=== PATIENT | male | born 1940 | race Caucasian/White ===

== ENCOUNTER 2017-07-22 18:27 | Emergency (ER) | payer MEDICARE ==
[2017-07-22 18:33] VITALS: BP 160/83
[2017-07-22] MEDS ORDERED: Sodium Chloride 0.9% 10 ML Syringe FLUSH PRN (18:42)
--- NOTE | 2017-07-22 18:52 | EDM.PDOC ---
ED HPI GENERAL MEDICAL PROBLEM - General Chief Complaint: Neuro Symptoms/Deficits Stated Complaint: med via [place] Time Seen by Provider: 07/22/17 18:35 Source of Information: Reports: Patient, Old Records, RN History Limitations: Reports: No Limitations - History of Present Illness INITIAL COMMENTS - FREE TEXT/NARRATIVE: 77 yo male presents after a KO and slurred, confused speech that lasted 20-30 minutes starting at about 2 pm today. He has a coronary stent from about age 63 in his R coronary artery. No hx of CVA's or migraine. He does not normally have elevated BP. He does not smoke. His BS was about 120 with this episode. He is back to normal now except for a mild KO behind his L eye. The vision at the time of his attack was blurry in the L eye only. Onset: Today Onset Date: 07/22/17 Onset Time: 14:00 Duration: Minutes: (20-30), Improving Location: Reports: Head Quality: Reports: Ache Severity: Moderate Improves with: Reports: Other (? time) Worsens with: Reports: Other (unknown) Context: Reports: Other (Hx of CAD, AODN) Associated Symptoms: Reports: Confusion, Headaches, Other (slurred speech, blurry L eye). 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 (see below) (none) Headache Pain Score (Numeric/FACES): 2 - Related Data Allergies Allergy/AdvReac Type Severity Reaction Status Date / Time No Known Allergies Allergy Verified 04/01/13 08:56 Home Meds: Home Meds Aspirin [Adult Low Dose Aspirin EC] 81 mg PO DAILY 04/01/13 [History] Insulin Glarg,Human.Rec.Analog [Lantus] 50 units SQ Q12HR 04/01/13 [History] Ubidecarenone [Coenzyme Q10] 200 mg PO DAILY 04/01/13 [History] Alpha Lipoic Acid 200 mg PO BID 07/12/15 [History] Arginine 1,500 mg PO BID 07/12/15 [History] Canagliflozin [Invokana] 300 mg PO DAILY 07/12/15 [History] Cholecalciferol (Vitamin D3) [Vitamin D] 1,000 unit PO BID 07/12/15 [History] Chromium Picolinate 200 mcg PO DAILY 07/12/15 [History] Folic Acid 400 mcg PO DAILY 07/12/15 [History] Furosemide 20 mg PO DAILY 07/12/15 [History] Insulin Lispro [Humalog] 40 unit SQ ASDIRECTED 07/12/15 [History] Lecithin 1,200 mg PO BID 07/12/15 [History] Liraglutide [Victoza] 1.8 mg SUBCUT DAILY 07/12/15 [History] Magnesium 400 mg PO DAILY 07/12/15 [History] Metoprolol Succinate [Toprol XL] 12.5 mg PO DAILY 07/12/15 [History] Niacin 1,000 mg PO DAILY 07/12/15 [History] [place]-3 Fatty Acids [[place]-3] 1,000 mg PO BID 07/12/15 [History] Past Medical History Cardiovascular History: Reports: CAD, SD, Stents, Other (See Below) Other Cardiovascular History: history of SD and stent x1 about 13 years ago according to patient Respiratory History: Reports: Pneumonia, Recurrent, Sleep Apnea, Other (See Below) 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 Musculoskeletal History: Reports: Arthritis, Other (See Below) Other Musculoskeletal History: arthritis left ankle and knees Neurological History: Reports: Concussion Endocrine/Metabolic History: Reports: Diabetes, Type II - Infectious Disease History Infectious Disease History: Reports: Chicken Pox - Past Surgical History Cardiovascular Surgical History: Reports: Carotid Stents Social & Family History - Family History Family Medical History: Noncontributory - Tobacco Use Smoking Status *Q: Former Smoker Used Tobacco, but Quit: Yes Month Tobacco Last Used: 2001 - Recreational Drug Use Recreational Drug Use: No ED ROS GENERAL - Review of Systems Review Of Systems: See Below Constitutional: Reports: No Symptoms HEENT: Reports: Eye Pain (behind L eye), Vision Change (L eye only, now better) Respiratory: Reports: No Symptoms Cardiovascular: Reports: No Symptoms Endocrine: Reports: No Symptoms GI/Abdominal: Reports: No Symptoms : Reports: No Symptoms Musculoskeletal: Reports: No Symptoms Skin: Reports: No Symptoms Neurological: Reports: Headache, Trouble Speaking, Other (blurred vision L eye) Psychiatric: Reports: No Symptoms ED EXAM, NEURO - Physical Exam Exam: See Below Exam Limited By: No Limitations General Appearance: Alert, WD/WN, No Apparent Distress Eye Exam: Bilateral Eye: EOMI, Normal Inspection, PERRL Ears: Normal External Exam, Normal Canal, Hearing Grossly Normal Nose: Normal Inspection, Normal Mucosa, No Blood Throat/Mouth: Normal Inspection, Normal Lips, Normal Oropharynx, Normal Voice, No Airway Compromise Head Exam: Atraumatic, Normocephalic Neck: Normal Inspection, Supple, Non-Tender. No: Carotid Bruit Respiratory/Chest: No Respiratory Distress, Lungs Clear, Normal Breath Sounds, No Accessory Muscle Use, Chest Non-Tender Cardiovascular: Regular Rate, Rhythm, No Edema GI/Abdominal: Normal Bowel Sounds, Soft, Non-Tender, No Distention Neurological: Alert, Normal Mood/Affect, CN II-XII Intact, Normal Reflexes, No Motor/Sensory Deficits, Oriented x 3 Extremities: Normal Inspection, Normal Range of Motion, Non-Tender, No Pedal Edema Psychiatric: Normal Affect, Normal Mood Skin Exam: Warm, Dry, Intact, Normal Color, No Rash Course - Vital Signs Text/Narrative:: Tells me his BS levels area quite labile. He was not surprised that his BS was 289 here. At home if he took any short acting insulin for this it would be a very low dose or he might bottom out. His BS before he ate dinner about 1600h today was 120. Is now fully resolved of what brought him to the ER @ 1950h. ASA 243 mg po Spoke with Bebeto nunes, Dr. Rivera@ 2030h. Accepts in transfer to [facility]. Last Recorded V/S: Last Vital Signs Temp 36.4 C 07/22/17 18:43 Pulse 77 18 18:43 Resp 16 07/22/17 18:43 BP 160/83 H 07/22/17 18:43 Pulse Ox 96 07/22/17 18:43 - Orders/Labs/Meds Orders: Active Orders 24 hr Category Date Time Status Cardiac Monitoring [RC] .As Directed Care 07/22/17 18:41 Active Oxygen Therapy Adult [Oxygen Therapy, ED] [RC] Care 07/22/17 18:41 Active ASDIRECTED Head wo Cont [CT] Stat Exams 18 18:40 Taken Sodium Chloride 0.9% [Saline Flush] Med 07/22/17 18:42 Active 10 ml FLUSH ASDIRECTED PRN Saline Lock Insert [OM.PC] Routine Oth 07/22/17 18:42 Ordered Medication Orders Sodium Chloride (Saline Flush) 10 ml FLUSH ASDIRECTED PRN PRN Reason: Keep Vein Open Labs: Laboratory Tests 07/22/17 07/22/17 07/22/17 Range/Units 18:51 18:51 19:31 WBC 6.3 (4.5-11.0) K/uL RBC 4.37 (4.30-5.90) M/uL Hgb 12.9 (12.0-15.0) g/dL Hct 37.5 L (40.0-54.0) % MCV 86 (80-98) fL MCH 30 (27-31) pg MCHC 34 (32-36) % Plt Count 183 (150-400) K/uL Sodium 133 L (140-148) mmol/L Potassium 4.3 (3.6-5.2) mmol/L Chloride 98 L (100-108) mmol/L Carbon Dioxide 27 (21-32) mmol/L Anion Gap 12.3 (5.0-14.0) mmol/L BUN 22 H (7-18) mg/dL Creatinine 1.7 H (0.8-1.3) mg/dL Est Cr Clr Drug Dosing 39.37 mL/min Estimated GFR (MDRD) 39 L (>60) Glucose 289 H (74-106) mg/dL Calcium 8.6 (8.5-10.1) mg/dL Troponin I < 0.017 (0.000-0.056) ng/mL Urine Color Yellow Urine Appearance Clear Urine pH 7.0 (4.5-8.0) Ur Specific [place] 1.015 (1.008-1.030) Urine Protein 30 H (NEGATIVE) mg/dL Urine Glucose (UA) 1000 H (NEGATIVE) mg/dL Urine Ketones Negative (NEGATIVE) mg/dL Urine Occult Blood Negative (NEGATIVE) Urine Nitrite Negative (NEGAITVE) Urine Bilirubin Negative (NEGATIVE) Urine Urobilinogen Normal (NORMAL) mg/dL Ur Leukocyte Esterase Negative (NEGATIVE) Urine RBC Not seen (0-5) Urine WBC 0-5 (0-5) Ur Epithelial Cells Not seen Amorphous Sediment Not seen Urine Bacteria Not seen Urine Mucus Rare Meds: Medications Generic Name Dose Route Start Last Admin Trade Name Freq PRN Reason Stop Dose Admin Sodium Chloride 10 ml 07/22/17 18:42 Saline Flush FLUSH ASDIRECTED PRN Keep Vein Open Discontinued Medications Generic Name Dose Route Start Last Admin Trade Name Andrea PRN Reason Stop Dose Admin Aspirin 243 mg 07/22/17 20:25 Aspirin PO 07/22/17 20:26 ONETIME ONE - Radiology Interpretation Free Text/Narrative:: Atrophy, microvasular dz-nothing acute. CT Results Date: 07/22/17 CT Results Time: 20:15 Departure - Departure Time of Disposition: 20:45 Disposition: DC/Tfer to Acute Hospital 02 Condition: Fair Clinical Impression: Transient ischemic attack, anterior circulation, remote, resolved - Discharge Information Referrals: PCP,None [Primary Care Provider] - Forms: ED Department Discharge - My Orders Last 24 Hours: My Active Orders 07/22/17 18:40 Head wo Cont [CT] Stat 07/22/17 18:41 Cardiac Monitoring [RC] .As Directed Oxygen Therapy Adult [Oxygen Therapy, ED] [RC] ASDIRECTED 07/22/17 18:42 Sodium Chloride 0.9% [Saline Flush] 10 ml FLUSH ASDIRECTED PRN Saline Lock Insert [OM.PC] Routine - Assessment/Plan Last 24 Hours: My Active Orders 07/22/17 18:40 Head wo Cont [CT] Stat 07/22/17 18:41 Cardiac Monitoring [RC] .As Directed Oxygen Therapy Adult [Oxygen Therapy, ED] [RC] ASDIRECTED 07/22/17 18:42 Sodium Chloride 0.9% [Saline Flush] 10 ml FLUSH ASDIRECTED PRN Saline Lock Insert [OM.PC] Routine
[2017-07-22] MEDS ORDERED: Aspirin 81 MG Tab.Chew PO ONE (20:25)
== END 2017-07-22 22:02 ==
LOC: JP.ED 18:27
DX: G45.9 Transient cerebral ischemic attack, unspecified (principal); I25.2 Old myocardial infarction; E11.9 Type 2 diabetes mellitus without complications; Z79.82 Long term (current) use of aspirin; Z79.899 Other long term (current) drug therapy
CPT/HCPCS: 36415; 70450; 80048; 81001; 84484; 85027; 99285; A9270

== ENCOUNTER 2018-08-28 06:28 | Day surgery (SDC) | payer MEDICARE ==
[2018-08-28] MEDS ORDERED: Sodium Chloride 0.9% 1,000 ML IV SCH (07:00)
[2018-08-28] MEDS ORDERED: Propofol 200 MG/20 ML SDV ONE (07:08)
[2018-08-28] MEDS ORDERED: fentaNYL 100 MCG/2 ML SDV ONE (07:09)
[2018-08-28] MEDS ORDERED: Ampicillin 1 GM in Sodium Chloride 0.9% 50 ML IV ONE (07:30)
[2018-08-28 08:40] VITALS: BP 123/73
--- NOTE | 2018-08-28 08:53 | PROC ---
DATE OF PROCEDURE: 08/28/2018 SURGEON: Doug Low MD INDICATIONS: Timoteo is a 78-year-old male, comes in for a screening colonoscopy. The risks and benefits were explained, and the patient was taken to the OR. PROCEDURE IN DETAIL: Anesthesia was given by nurse audio visual director. The Olympus 180-AL scope was used. With a gloved finger, the rectum was examined and the prostate was negative. The tube was placed into the rectum and advanced under direct vision. We did get to the cecum, where we found a polyp. This was biopsied, and the biopsies were sent to the pathologist. Picture was taken of the cecum area. Upon retraction of the tube, noted no lesions, ulceration, no other abnormality. The tube was removed. The patient tolerated the procedure well. PREOPERATIVE DIAGNOSIS: Screening colonoscopy. POSTOPERATIVE DIAGNOSIS: 4 mm polyp at cecum, biopsy was done and report is pending. The patient tolerated the procedure well. Doug Low MD /[id number]
== END 2018-08-28 09:32 | disposition home or self-care (01) ==
LOC: JP.SDS 06:28
PROVIDERS: ATTEND Internal Medicine
DX: Z12.11 Encounter for screening for malignant neoplasm of colon (principal); D12.0 Benign neoplasm of cecum; I25.10 Atherosclerotic heart disease of native coronary artery without angina pectoris; I25.2 Old myocardial infarction; I12.9 Hypertensive chronic kidney disease with stage 1 through stage 4 chronic kidney disease, or unspecified chronic kidney disease; E11.22 Type 2 diabetes mellitus with diabetic chronic kidney disease; N18.9 Chronic kidney disease, unspecified; E78.5 Hyperlipidemia, unspecified; K21.9 Gastro-esophageal reflux disease without esophagitis; G47.33 Obstructive sleep apnea (adult) (pediatric); Z86.010 Personal history of colon polyps; Z86.73 Personal history of transient ischemic attack (TIA), and cerebral infarction without residual deficits
CPT/HCPCS: 45380; J0290; J2704; J3010; J7030; J7050; 88305

== ENCOUNTER 2018-12-12 13:43 | Emergency (ER) | payer MEDICARE ==
--- NOTE | 2018-12-12 14:36 | EDM.PDOC ---
ED HPI GENERAL MEDICAL PROBLEM - General Chief Complaint: Cardiovascular Problem Stated Complaint: CHEST PAINS, SOB Time Seen by Provider: 12/12/18 14:19 Source of Information: Reports: Patient History Limitations: Reports: No Limitations - History of Present Illness INITIAL COMMENTS - FREE TEXT/NARRATIVE: 78 yo male presents with CP and SOB with activity. In October he did have blood transfusion following like symptoms. He does have established care with tableau architect and bond analyst. He has bone marrow biopsy scheduled for next week. He also has extensive cardiac hx with [address]. He describes incident this AM when he was walking out to mailbox became weak and had CP. The CP resolved with rest. Left Chest Pain Score (Numeric/FACES): 5 - Related Data Allergies Allergy/AdvReac Type Severity Reaction Status Date / Time metformin Allergy Rash Verified 12/12/18 14:01 Home Meds: Home Meds Aspirin [Adult Low Dose Aspirin EC] 325 mg PO DAILY 04/01/13 [History] Insulin Glarg,Human.Rec.Analog [Lantus] 50 units SQ Q12HR 04/01/13 [History] Furosemide 20 mg PO DAILY 07/12/15 [History] Insulin Lispro [Humalog] 40 unit SQ ASDIRECTED 07/12/15 [History] Liraglutide [Victoza] 1.8 mg SUBCUT DAILY 07/12/15 [History] Metoprolol Succinate [Toprol XL] 12.5 mg PO DAILY 07/12/15 [History] Clopidogrel Bisulfate [Clopidogrel] 75 mg PO DAILY 08/28/18 [History] Lisinopril 5 mg PO DAILY 12/12/18 [History] Past Medical History HEENT History: Reports: Cataract, Hard of Hearing, Impaired Vision Cardiovascular History: Reports: CAD, Heart Murmur, High Cholesterol, Hypertension, [place], Stents, Other (See Below) Other Cardiovascular History: history of IL and stent x1 about 13 years ago according to patient, 3 stents 2 weekas ago Respiratory History: Reports: Pneumonia, Recurrent, Sleep Apnea, Other (See Below) 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 Musculoskeletal History: Reports: Arthritis, Other (See Below) Other Musculoskeletal History: arthritis left ankle and knees Neurological History: Reports: Concussion, Neuropathy, Peripheral Endocrine/Metabolic History: Reports: Diabetes, Type II Hematologic History: Reports: Anemia, Blood Transfusion(s) - Infectious Disease History Infectious Disease History: Reports: Chicken Pox - Past Surgical History HEENT Surgical History: Reports: Cataract Surgery, Tonsillectomy Cardiovascular Surgical History: Reports: Carotid Stents Social & Family History - Family History Family Medical History: Noncontributory - Tobacco Use Smoking Status *Q: Never Smoker - Caffeine Use Caffeine Use: Reports: Coffee Other Caffeine Use: 1-2 cups in am - Recreational Drug Use Recreational Drug Use: No ED ROS GENERAL - Review of Systems Review Of Systems: See Below Constitutional: Denies: Fever, Chills Respiratory: Reports: Shortness of Breath. Denies: Wheezing Cardiovascular: Reports: Chest Pain GI/Abdominal: Denies: Abdominal Pain, Constipation, Diarrhea ED EXAM, GENERAL - Physical Exam Exam: See Below Exam Limited By: No Limitations General Appearance: Alert, WD/WN, No Apparent Distress Nose: Normal Inspection, Normal Mucosa, No Blood Head: Atraumatic, Normocephalic Respiratory/Chest: No Respiratory Distress, Lungs Clear, Normal Breath Sounds, No Accessory Muscle Use, Chest Non-Tender. No: Crackles, Rhonchi, Wheezing Cardiovascular: Regular Rate, Rhythm, No Rub, Systolic Murmur Extremities: Normal Inspection, Normal Range of Motion Neurological: Alert, Oriented Psychiatric: Normal Affect, Normal Mood Skin Exam: Warm, Dry, Intact Course - Vital Signs Last Recorded V/S: Last Vital Signs Temp 36.1 C 12/12/18 19:00 Pulse 70 12/12/18 16:32 Resp 17 12/12/18 19:00 BP 128/66 12/12/18 19:00 Pulse Ox 98 12/12/18 19:00 - Orders/Labs/Meds Orders: Active Orders 24 hr Category Date Time Status EKG Documentation Completion [RC] ASDIRECTED Care 12/12/18 14:37 Active Transfuse Red Blood Cells [COMM] Stat Oth 12/12/18 15:57 Ordered EKG 12 Lead [EK] Routine Ther 12/12/18 14:37 Ordered Labs: Laboratory Tests 12/12/18 12/12/18 12/12/18 Range/Units 14:40 14:40 14:40 WBC 1.5 L (4.5-11.0) K/uL RBC 2.72 L (4.30-5.90) M/uL Hgb 8.1 L D (12.0-15.0) g/dL Hct 24.8 L (40.0-54.0) % MCV 91 (80-98) fL MCH 30 (27-31) pg MCHC 33 (32-36) % Plt Count 53 L (150-400) K/uL Neut % (Auto) 39 (36-66) % Lymph % (Auto) 55 H (24-44) % [place] % (Auto) 4 (2-6) % Eos % (Auto) 1 L (2-4) % Baso % (Auto) 0 (0-1) % Sodium 134 L (140-148) mmol/L Potassium 4.5 (3.6-5.2) mmol/L Chloride 100 (100-108) mmol/L Carbon Dioxide 24 (21-32) mmol/L Anion Gap 14.5 H (5.0-14.0) mmol/L BUN 24 H (7-18) mg/dL Creatinine 1.4 H (0.8-1.3) mg/dL Est Cr Clr Drug Dosing 45.63 mL/min Estimated GFR (MDRD) 49 L (>60) Glucose 324 H (74-106) mg/dL Calcium 8.7 (8.5-10.1) mg/dL Troponin I < 0.017 (0.000-0.056) ng/mL Blood Type Gel Antibody Screen Crossmatch 12/12/18 Range/Units 14:40 WBC (4.5-11.0) K/uL RBC (4.30-5.90) M/uL Hgb (12.0-15.0) g/dL Hct (40.0-54.0) % MCV (80-98) fL MCH (27-31) pg MCHC (32-36) % Plt Count (150-400) K/uL Neut % (Auto) (36-66) % Lymph % (Auto) (24-44) % [place] % (Auto) (2-6) % Eos % (Auto) (2-4) % Baso % (Auto) (0-1) % Sodium (140-148) mmol/L Potassium (3.6-5.2) mmol/L Chloride (100-108) mmol/L Carbon Dioxide (21-32) mmol/L Anion Gap (5.0-14.0) mmol/L BUN (7-18) mg/dL Creatinine (0.8-1.3) mg/dL Est Cr Clr Drug Dosing mL/min Estimated GFR (MDRD) (>60) Glucose (74-106) mg/dL Calcium (8.5-10.1) mg/dL Troponin I (0.000-0.056) ng/mL Blood Type A POSITIVE Gel Antibody Screen Negative Crossmatch See Detail - Re-Assessments/Exams Free Text/Narrative Re-Assessment/Exam: 12/12/18 19:39 symptomatic anemia, received 1 unit PRB has appt with bond analyst next week Departure - Departure Time of Disposition: 19:40 Disposition: Home, Self-Care 01 Condition: Good Clinical Impression: Anemia Qualifiers: Anemia type: other cause Other causes of anemia: other cause, not classified Qualified Code(s): D64.89 - Other specified anemias Instructions: Blood Transfusion, Adult, [id number] Referrals: Doug Low Sr, MD [Primary Care Provider] - Forms: ED Department Discharge Additional Instructions: continue with plan to follow-up with bond analyst Rest - My Orders Last 24 Hours: My Active Orders 12/12/18 14:37 EKG Documentation Completion [RC] ASDIRECTED EKG 12 Lead [EK] Routine 12/12/18 15:57 Transfuse Red Blood Cells [COMM] Stat - Assessment/Plan Last 24 Hours: My Active Orders 12/12/18 14:37 EKG Documentation Completion [RC] ASDIRECTED EKG 12 Lead [EK] Routine 12/12/18 15:57 Transfuse Red Blood Cells [COMM] Stat
[2018-12-12 20:07] VITALS: BP 138/76; PULSE 63
== END 2018-12-12 20:15 | disposition home or self-care (01) ==
LOC: JP.ED 13:43
DX: D64.89 Other specified anemias (principal); I25.10 Atherosclerotic heart disease of native coronary artery without angina pectoris; I25.2 Old myocardial infarction; M19.90 Unspecified osteoarthritis, unspecified site; E11.9 Type 2 diabetes mellitus without complications; Z79.899 Other long term (current) drug therapy; Z98.49 Cataract extraction status, unspecified eye; Z98.890 Other specified postprocedural states; Z79.4 Long term (current) use of insulin; Z79.82 Long term (current) use of aspirin; Z88.8 Allergy status to other drugs, medicaments and biological substances; Z95.5 Presence of coronary angioplasty implant and graft
CPT/HCPCS: 36415; 36430; 80048; 84484; 85025; 86850; 86900; 86901; 86920; 86922; 93005; 99285; P9016; 93010; 99283

== ENCOUNTER 2019-04-18 19:14 | Emergency (ER) | payer MEDICARE ==
[2019-04-18 20:07] VITALS: BP 101/60; PULSE 84
--- NOTE | 2019-04-18 20:38 | EDM.PDOC ---
ED HPI GENERAL MEDICAL PROBLEM - General Chief Complaint: Genitourinary Problem Stated Complaint: UNABLE TO USE THE BATHROOM Time Seen by Provider: 04/18/19 20:15 Source of Information: Reports: Patient, Old Records, RN History Limitations: Reports: No Limitations - History of Present Illness INITIAL COMMENTS - FREE TEXT/NARRATIVE: 79 yo male here with inability to urinate or stool. Is on chemo for Cancer. Did pass a large diameter stool earlier today that did result in some rectal bleeding. Feels like there is more stool present. Is currently on Cipro. No fever or vomiting. Onset: Today Onset Date: 04/18/19 Duration: Hour(s):, Getting Worse Location: Reports: Abdomen, Pelvis Quality: Reports: Pressure Severity: Moderate Improves with: Reports: None Worsens with: Reports: Other (time) Context: Reports: Other (See HPI) Associated Symptoms: Reports: No Other Symptoms. 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) (none) - Related Data Allergies Allergy/AdvReac Type Severity Reaction Status Date / Time metformin Allergy Rash Verified 04/18/19 19:51 Home Meds: Home Meds Aspirin [Adult Low Dose Aspirin EC] 325 mg PO DAILY 04/01/13 [History] Insulin Glarg,Human.Rec.Analog [Lantus] 50 units SQ Q12HR 04/01/13 [History] Furosemide 20 mg PO DAILY 07/12/15 [History] Insulin Lispro [Humalog] 40 unit SQ ASDIRECTED 07/12/15 [History] Liraglutide [Victoza] 1.8 mg SUBCUT DAILY 07/12/15 [History] Metoprolol Succinate [Toprol XL] 12.5 mg PO DAILY 07/12/15 [History] Clopidogrel Bisulfate [Clopidogrel] 75 mg PO DAILY 08/28/18 [History] Lisinopril 5 mg PO DAILY 12/12/18 [History] Ciprofloxacin [Ciprofloxacin HCl] 1 tab PO BID 04/18/19 [History] Tamsulosin HCl [Flomax] 0.4 mg PO BEDTIME #30 cap.er.24h 04/18/19 [Rx] atorvaSTATin Calcium [Atorvastatin Calcium] 1 tab PO DAILY 04/18/19 [History] Past Medical History HEENT History: Reports: Cataract, Hard of Hearing, Impaired Vision Cardiovascular History: Reports: CAD, Heart Murmur, High Cholesterol, Hypertension, [place], Stents, Other (See Below) Other Cardiovascular History: history of AR and stent x1 about 13 years ago according to patient, 3 stents 2 weekas ago Respiratory History: Reports: Pneumonia, Recurrent, Sleep Apnea, Other (See Below) 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 Musculoskeletal History: Reports: Arthritis, Other (See Below) Other Musculoskeletal History: arthritis left ankle and knees Neurological History: Reports: Concussion, Neuropathy, Peripheral Endocrine/Metabolic History: Reports: Diabetes, Type II Hematologic History: Reports: Anemia, Blood Transfusion(s) - Infectious Disease History Infectious Disease History: Reports: Chicken Pox - Past Surgical History HEENT Surgical History: Reports: Cataract Surgery, Tonsillectomy Cardiovascular Surgical History: Reports: Carotid Stents Social & Family History - Family History Family Medical History: Noncontributory - Tobacco Use Smoking Status *Q: Never Smoker - Caffeine Use Caffeine Use: Reports: Coffee Other Caffeine Use: 1-2 cups in am ED ROS GENERAL - Review of Systems Review Of Systems: See Below Constitutional: Reports: No Symptoms GI/Abdominal: Reports: Abdominal Pain (rectal pressure, low abdominal pressure) , Constipation (recent), Diarrhea (some rectal leakage), Hematochezia (since passing the large diameter stool today.), Nausea. Denies: Black Stool, Bloody Stool, Distension, Flatus, Hematemesis, Melena, Vomiting : Reports: Urinary Retention Skin: Reports: No Symptoms Neurological: Reports: No Symptoms ED EXAM, GI/ABD - Physical Exam Exam: See Below Exam Limited By: No Limitations General Appearance: Alert, WD/WN, No Apparent Distress Eyes: Bilateral: Normal Appearance Ears: Normal External Exam, Normal Canal, Hearing Grossly Normal Nose: Normal Inspection, No Blood Throat/Mouth: Normal Inspection, Normal Lips, Normal Oropharynx, Normal Voice, No Airway Compromise Head: Atraumatic, Normocephalic Neck: Normal Inspection Respiratory/Chest: No Respiratory Distress, Lungs Clear, Normal Breath Sounds, No Accessory Muscle Use Cardiovascular: Regular Rate, Rhythm GI/Abdominal Exam: Normal Bowel Sounds, Soft, Non-Tender, No Distention Back Exam: Normal Inspection. No: CVA Tenderness (R), CVA Tenderness (L) Extremities: Normal Inspection, Normal Range of Motion, Non-Tender, No Pedal Edema Neurological: Alert, Oriented, CN II-XII Intact, Normal Cognition, No Motor/ Sensory Deficits Psychiatric: Normal Affect, Normal Mood Skin Exam: Warm, Dry, Intact, Normal Color, No Rash Course - Vital Signs Text/Narrative:: Soler placed and about 1500 ml of urine produced. Unable to retain enema. small stool produced, feels well wants to go home. Last Recorded V/S: Last Vital Signs Temp 37.0 C 04/18/19 19:59 Pulse 84 04/18/19 19:59 Resp 14 04/18/19 19:59 BP 101/60 04/18/19 19:59 Pulse Ox 94 L 04/18/19 19:59 - Orders/Labs/Meds Orders: Active Orders 24 hr Category Date Time Status Bladder Scan [RC] ASDIRECTED Care 04/18/19 19:39 Active Enema [RC] ASDIRECTED Care 04/18/19 20:11 Active Soler Catheter Insertion [Insert Urinary Catheter] [OM. Care 04/18/19 20:15 Ordered PC] Q24H Urinary Catheter Assessment [RC] ASDIRECTED Care 04/18/19 20:11 Active Meds: Medications Discontinued Medications Generic Name Dose Route Start Last Admin Trade Name Freq PRN Reason Stop Dose Admin Bisacodyl 10 mg 04/18/19 21:17 Dulcolax RECTAL 04/18/19 21:18 ONETIME ONE Polyethylene Glycol 34 gm 04/18/19 22:16 Miralax PO 04/18/19 22:17 ONETIME ONE Tamsulosin HCl 0.4 mg 04/18/19 22:20 Flomax PO 04/18/19 22:21 ONETIME ONE - Radiology Interpretation Free Text/Narrative:: Single view abdomen X-ray-large amt of stool, especially in the rectum. IMPRESSION: 1. Moderate to large amount of stool within the rectum and distal sigmoid region. Moderate amount of stool within the more proximal colon. 2. No small bowel obstruction. Dictated by Cassius Partida MD @ 04/18/2019 9:41:54 PM Dictated by: Cassius Partida MD @ 04/18/2019 21:41:58 Departure - Departure Time of Disposition: 22:30 Disposition: Home, Self-Care 01 Condition: Good Clinical Impression: Acute urinary retention, Obstipation, Fecal impaction in rectum - Discharge Information *PRESCRIPTION DRUG MONITORING PROGRAM REVIEWED*: No *COPY OF PRESCRIPTION DRUG MONITORING REPORT IN PATIENT SONU: No Prescriptions: Tamsulosin HCl [Flomax] 0.4 mg PO BEDTIME #30 cap.er.24h Referrals: Doug Low Sr, MD [Primary Care Provider] - Forms: ED Department Discharge Additional Instructions: Take Flomax every night to prevent urinary retention. Take Miralax one dose every day to prevent constipation. You may need to digitally disimpact yourself tomorrow if you can't push the stool out. Recheck as needed. - My Orders Last 24 Hours: My Active Orders 04/18/19 19:39 Bladder Scan [RC] ASDIRECTED 04/18/19 20:11 Enema [RC] ASDIRECTED Urinary Catheter Assessment [RC] ASDIRECTED 04/18/19 20:15 Soler Catheter Insertion [Insert Urinary Catheter] [OM.PC] Q24H - Assessment/Plan Last 24 Hours: My Active Orders 04/18/19 19:39 Bladder Scan [RC] ASDIRECTED 04/18/19 20:11 Enema [RC] ASDIRECTED Urinary Catheter Assessment [RC] ASDIRECTED 04/18/19 20:15 Soler Catheter Insertion [Insert Urinary Catheter] [OM.PC] Q24H
[2019-04-18] MEDS ORDERED: Bisacodyl 10 MG Supp RECTAL ONE (21:17)
--- NOTE | 2019-04-18 21:42 | CRLCR ---
HISTORY: Obstipation. TECHNIQUE: One view of the abdomen. COMPARISON: No prior. FINDINGS: There is a moderate amount of stool within the proximal colon and a moderate to large amount of stool within the rectum and distal sigmoid region of the colon. No dilated small bowel loops. Degenerative changes of the spine. IMPRESSION: 1. Moderate to large amount of stool within the rectum and distal sigmoid region. Moderate amount of stool within the more proximal colon. 2. No small bowel obstruction. Dictated by Cassius Partida MD @ 04/18/2019 9:41:54 PM Dictated by: Cassius Partida MD @ 04/18/2019 21:41:58 (Electronically Signed)
[2019-04-18] MEDS ORDERED: Polyethylene Glycol 3350 Powder 17 GM Packet PO ONE (22:16)
[2019-04-18] MEDS ORDERED: Tamsulosin 0.4 MG Cap.ER PO ONE (22:20)
== END 2019-04-18 22:56 | disposition home or self-care (01) ==
LOC: JP.ED 19:14
DX: R33.9 Retention of urine, unspecified (principal); K56.41 Fecal impaction; E78.00 Pure hypercholesterolemia, unspecified; I25.10 Atherosclerotic heart disease of native coronary artery without angina pectoris; I10 Essential (primary) hypertension; I25.2 Old myocardial infarction; E11.36 Type 2 diabetes mellitus with diabetic cataract; H26.9 Unspecified cataract; E11.42 Type 2 diabetes mellitus with diabetic polyneuropathy; Z88.8 Allergy status to other drugs, medicaments and biological substances; Z79.82 Long term (current) use of aspirin; Z95.5 Presence of coronary angioplasty implant and graft; Z79.4 Long term (current) use of insulin; Z79.02 Long term (current) use of antithrombotics/antiplatelets; Z79.899 Other long term (current) drug therapy
CPT/HCPCS: 51702; 51798; 74018; 99283; 99285; A9270

== ENCOUNTER 2020-04-28 15:15 | Inpatient (IN) | payer MEDICARE ==
[2020-04-28] MEDS ORDERED: Pantoprazole 40 MG Vial IVPUSH ONE (17:18)
--- NOTE | 2020-04-28 17:21 | EDM.PDOC ---
ED HPI GENERAL MEDICAL PROBLEM - General Chief Complaint: Genitourinary Problem Stated Complaint: LOW HEMOGLOBIN Time Seen by Provider: 04/28/20 17:19 Source of Information: Reports: Patient History Limitations: Reports: No Limitations - History of Present Illness INITIAL COMMENTS - FREE TEXT/NARRATIVE: pt was sent herer by [facility] with a low Hg. He has a history of bone Ca. The source of this is unknown according to the pt. He has not had abdomanal painbut he has noted black tarry stools. He has not been vomiting. Onset: Gradual Duration: Day(s): Location: Reports: Generalized, Other (Pt is so sob that he is having difficulty walking any distance. ) Associated Symptoms: Reports: Diaphoresis, Shortness of Breath, Weakness - Related Data Allergies Allergy/AdvReac Type Severity Reaction Status Date / Time metformin Allergy Rash Verified 04/18/19 19:51 Home Meds: Home Meds Insulin Glarg,Human.Rec.Analog [Lantus] 50 units SQ Q12HR 04/01/13 [History] Insulin Lispro [Humalog] 40 unit SQ ASDIRECTED 07/12/15 [History] Liraglutide [Victoza] 1.8 mg SUBCUT DAILY 07/12/15 [History] Clopidogrel Bisulfate [Clopidogrel] 75 mg PO DAILY 08/28/18 [History] Ciprofloxacin [Ciprofloxacin HCl] 1 tab PO BID 04/18/19 [History] Past Medical History HEENT History: Reports: Cataract, Hard of Hearing, Impaired Vision Cardiovascular History: Reports: CAD, Heart Murmur, High Cholesterol, Hypertension, CT, Stents, Other (See Below) Other Cardiovascular History: history of CT and stent x1 about 13 years ago according to patient, 3 stents 2 weekas ago Respiratory History: Reports: Pneumonia, Recurrent, Sleep Apnea, Other (See Below) 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 Musculoskeletal History: Reports: Arthritis, Other (See Below) Other Musculoskeletal History: arthritis left ankle and knees Neurological History: Reports: Concussion, Neuropathy, Peripheral Endocrine/Metabolic History: Reports: Diabetes, Type II Hematologic History: Reports: Anemia, Blood Transfusion(s) - Infectious Disease History Infectious Disease History: Reports: Chicken Pox - Past Surgical History HEENT Surgical History: Reports: Cataract Surgery, Tonsillectomy Cardiovascular Surgical History: Reports: Carotid Stents Respiratory Surgical History: Reports: None Endocrine Surgical History: Reports: None Neurological Surgical History: Reports: None Musculoskeletal Surgical History: Reports: None Social & Family History - Family History Family Medical History: No Pertinent Family History - Tobacco Use Tobacco Use Status *Q: Former Tobacco User Years of Tobacco use: 35 Packs/Tins Daily: 0.5 Used Tobacco, but Quit: Yes Month/Year Tobacco Last Used: 19 years ago - Caffeine Use Caffeine Use: Reports: Coffee Other Caffeine Use: 1-2 cups per day - Recreational Drug Use Recreational Drug Use: No ED ROS GENERAL - Review of Systems Review Of Systems: See Below Constitutional: Reports: Weakness, Fatigue HEENT: Reports: No Symptoms Respiratory: Reports: Shortness of Breath Cardiovascular: Reports: No Symptoms Endocrine: Reports: No Symptoms GI/Abdominal: Reports: Other ( black tarry stools. ) : Reports: No Symptoms ED EXAM, GI/ABD - Physical Exam Exam: See Below Text/Narrative:: p t arrived with a history of anemia, bone Ca and some black tarry stools. Exam Limited By: No Limitations General Appearance: Alert, Anxious, Mild Distress Ears: Normal TMs Nose: Normal Inspection Throat/Mouth: Normal Inspection Head: Atraumatic Neck: Normal Inspection Respiratory/Chest: Other (pt is sob with activity. ) Cardiovascular: Regular Rate, Rhythm GI/Abdominal Exam: Tender, Other (pt is tender in the epigastric area. ) (Male) Exam: Deferred Rectal (Males) Exam: Other ( Pt has some firm stool that is dark and ia positive for blood. ) Back Exam: Normal Inspection Extremities: Normal Inspection Neurological: Alert, Oriented, Normal Cognition Course - Vital Signs Last Recorded V/S: Last Vital Signs Temp 36.3 C 04/28/20 16:12 Pulse 81 04/28/20 16:12 Resp 20 04/28/20 16:12 BP 118/47 L 04/28/20 16:12 Pulse Ox 100 04/28/20 16:12 - Orders/Labs/Meds Orders: Active Orders 24 hr Category Date Time Status COMPREHENSIVE METABOLIC PN,CMP [CHEM] Urgent Lab 04/28/20 17:30 Received RED BLOOD CELLS LP [BBK] Stat Lab 04/28/20 17:51 Ordered TYPE AND SCREEN [BBK] Stat Lab 04/28/20 17:51 Ordered UA W/MICROSCOPIC [URIN] Urgent Lab 04/28/20 17:17 Ordered Sodium Chloride 0.9% [Normal Saline] 1,000 ml Med 04/28/20 17:30 Active IV ASDIRECTED Medication Orders Sodium Chloride (Normal Saline) 1,000 mls @ 500 mls/hr IV ASDIRECTED ROSE Labs: Laboratory Tests 04/28/20 Range/Units 17:30 WBC 1.5 L (4.5-11.0) K/uL RBC 2.39 L (4.30-5.90) M/uL Hgb 6.7 L* (12.0-15.0) g/dL Hct 21.8 L (40.0-54.0) % MCV 91 (80-98) fL MCH 28 (27-31) pg MCHC 31 L (32-36) % Plt Count 37 L (150-400) K/uL Neut % (Auto) 38 (36-66) % Lymph % (Auto) 58 H (24-44) % [place] % (Auto) 5 (2-6) % Eos % (Auto) 0 L (2-4) % Baso % (Auto) 0 (0-1) % Meds: Medications Generic Name Dose Route Start Last Admin Trade Name Freq PRN Reason Stop Dose Admin Sodium Chloride 1,000 mls @ 500 mls/hr 04/28/20 17:30 Normal Saline IV ASDIRECTED ROSE Discontinued Medications Generic Name Dose Route Start Last Admin Trade Name Freq PRN Reason Stop Dose Admin Pantoprazole Sodium 40 mg 04/28/20 17:18 Protonix Iv IVPUSH 04/28/20 17:19 ONETIME ONE - Re-Assessments/Exams Free Text/Narrative Re-Assessment/Exam: 04/28/20 17:57 pt has a hg of 6.7 and his stool is positive for blood. He has noted black tarry stools. Departure - Departure Time of Disposition: 17:57 Disposition: Home, Self-Care 01 Condition: Fair Clinical Impression: Anemia, Bone cancer, Gastrointestinal irritation, Positive occult stool blood test - Discharge Information Referrals: Doug Low Sr, MD [Primary Care Provider] - Forms: ED Department Discharge Care Plan Goals: admit ti Dr Low Sepsis Event Note (ED) - Evaluation Sepsis Screening Result: No Definite Risk - Focused Exam Vital Signs: Vital Signs Temp Pulse Resp BP Pulse Ox 04/28/20 16:12 36.3 C 81 20 118/47 L 100 04/28/20 16:03 36.3 C 81 20 118/47 L 100 - My Orders Last 24 Hours: My Active Orders 04/28/20 17:17 UA W/MICROSCOPIC [URIN] Urgent 04/28/20 17:30 COMPREHENSIVE METABOLIC PN,CMP [CHEM] Urgent Sodium Chloride 0.9% [Normal Saline] 1,000 ml IV ASDIRECTED 04/28/20 17:51 RED BLOOD CELLS LP [BBK] Stat TYPE AND SCREEN [BBK] Stat - Assessment/Plan Last 24 Hours: My Active Orders 04/28/20 17:17 UA W/MICROSCOPIC [URIN] Urgent 04/28/20 17:30 COMPREHENSIVE METABOLIC PN,CMP [CHEM] Urgent Sodium Chloride 0.9% [Normal Saline] 1,000 ml IV ASDIRECTED 04/28/20 17:51 RED BLOOD CELLS LP [BBK] Stat TYPE AND SCREEN [BBK] Stat
[2020-04-28] MEDS ORDERED: Sodium Chloride 0.9% 1,000 ML IV SCH (17:30)
--- NOTE | 2020-04-28 18:52 | PCM.HP.2 ---
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 Has had several blood transfusions recently and was feeling weak today and was found to have a Hb below 7 and came to the ER for blood transfusions. He is followed by oncology for MDS. He did have a unit of blood 5 days ago and 4 days ago which is last Saturday and Saturday of this week. He has had low plts for several months. He has had block stools recently but denies abd. pain. Onset of Symptoms: Reports: Gradual Duration of Symptoms: Reports: Chronic Worsens with: Reports: Movement - Related Data Allergies/Adverse Reactions: Allergies Allergy/AdvReac Type Severity Reaction Status Date / Time metformin Allergy Rash Verified 04/18/19 19:51 Home Medications: Home Meds Insulin Glarg,Human.Rec.Analog [Lantus] 50 units SQ Q12HR 04/01/13 [History] Insulin Lispro [Humalog] 40 unit SQ ASDIRECTED 07/12/15 [History] Liraglutide [Victoza] 1.8 mg SUBCUT DAILY 07/12/15 [History] Clopidogrel Bisulfate [Clopidogrel] 75 mg PO DAILY 08/28/18 [History] Ciprofloxacin [Ciprofloxacin HCl] 1 tab PO BID 04/18/19 [History] Ascorbic Acid [Vitamin C with Tameka Hips] 500 mg PO BID 04/28/20 [History] Tamsulosin HCl [Flomax] 0.4 mg PO DAILY 04/28/20 [History] atorvaSTATin [Lipitor] 80 mg PO BEDTIME 04/28/20 [History] Past Medical History HEENT History: Reports: Cataract, Hard of Hearing, Impaired Vision Cardiovascular History: Reports: CAD, Heart Murmur, High Cholesterol, Hypertension, [place], Stents, Other (See Below) Other Cardiovascular History: history of SD and stent x1 about 13 years ago according to patient, 3 stents 2 weekas ago Respiratory History: Reports: Pneumonia, Recurrent, Sleep Apnea, Other (See Below) 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 Musculoskeletal History: Reports: Arthritis, Other (See Below) Other Musculoskeletal History: arthritis left ankle and knees Neurological History: Reports: Concussion, Neuropathy, Peripheral Endocrine/Metabolic History: Reports: Diabetes, Type II Hematologic History: Reports: Anemia, Blood Transfusion(s) - Infectious Disease History Infectious Disease History: Reports: Chicken Pox - Past Surgical History HEENT Surgical History: Reports: Cataract Surgery, Tonsillectomy Cardiovascular Surgical History: Reports: Carotid Stents Respiratory Surgical History: Reports: None Endocrine Surgical History: Reports: None Neurological Surgical History: Reports: None Musculoskeletal Surgical History: Reports: None Social & Family History - Family History Family Medical History: No Pertinent Family History - Tobacco Use Tobacco Use Status *Q: Former Tobacco User Years of Tobacco use: 35 Packs/Tins Daily: 0.5 Used Tobacco, but Quit: Yes Month/Year Tobacco Last Used: 19 years ago - Caffeine Use Caffeine Use: Reports: Coffee Other Caffeine Use: 1-2 cups per day - Recreational Drug Use Recreational Drug Use: No H&P Review of Systems - Review of Systems: Review Of Systems: See Below General: Reports: Weakness, Fatigue HEENT: Reports: No Symptoms Pulmonary: Reports: Shortness of Breath Cardiovascular: Reports: Dyspnea on Exertion Gastrointestinal: Reports: No Symptoms Genitourinary: Reports: No Symptoms Musculoskeletal: Reports: No Symptoms Skin: Reports: No Symptoms Neurological: Reports: Difficulty Walking, Weakness Exam - Exam Exam: See Below - Vital Signs Vital Signs: Last Vital Signs Temp 97.4 F 04/28/20 16:12 Pulse 81 04/28/20 16:12 Resp 20 04/28/20 16:12 BP 118/47 L 04/28/20 16:12 Pulse Ox 100 04/28/20 16:12 Weight: 210 lb - Exam General: Alert, Oriented, 4 HEENT: PERRLA, Hearing Intact, Mucosa Moist & [place], Nares Patent, Normal Nasal Septum, Posterior Pharynx Clear, Conjunctiva Clear, EOMI, EACs Clear, TMs Clear Neck: Supple, Trachea Midline, 2 Lungs: Clear to Auscultation, Normal Respiratory Effort Cardiovascular: Regular Rate, Regular Rhythm GI/Abdominal Exam: Normal Bowel Sounds, Soft, Non-Tender, No Organomegaly, No Distention, No Abnormal Bruit, No Mass, Pelvis Stable Extremities: Normal Inspection, Normal Range of Motion, Non-Tender, No Pedal Edema, Normal Capillary Refill, Pedal Edema Peripheral Pulses: 1+: Radial (L), Radial (R) Skin: Warm, Dry, Intact Neurological: Cranial Nerves Intact, Reflexes Equal Bilateral Neuro Extensive - Mental Status: Alert, Oriented x3, Normal Mood/Affect, Normal Cognition Neuro Extensive - Motor, Sensory, Reflexes: CN II-XII Intact DTR: 1+: Bicep (L), Bicep (R) Psychiatric: Alert, Normal Affect, Normal Mood - Patient Data Lab Results Last 24 hrs: Laboratory Results - last 24 hr 04/28/20 04/28/20 Range/Units 17:30 17:30 WBC 1.5 L (4.5-11.0) K/uL RBC 2.39 L (4.30-5.90) M/uL Hgb 6.7 L* (12.0-15.0) g/dL Hct 21.8 L (40.0-54.0) % MCV 91 (80-98) fL MCH 28 (27-31) pg MCHC 31 L (32-36) % Plt Count 37 L (150-400) K/uL Neut % (Auto) 38 (36-66) % Lymph % (Auto) 58 H (24-44) % [place] % (Auto) 5 (2-6) % Eos % (Auto) 0 L (2-4) % Baso % (Auto) 0 (0-1) % Sodium 131 L (140-148) mmol/L Potassium 4.2 (3.6-5.2) mmol/L Chloride 99 L (100-108) mmol/L Carbon Dioxide 24 (21-32) mmol/L Anion Gap 12.2 (5.0-14.0) mmol/L BUN 25 H (7-18) mg/dL Creatinine 1.2 (0.8-1.3) mg/dL Est Cr Clr Drug Dosing 51.54 mL/min Estimated GFR (MDRD) 58 L (>60) Glucose 316 H (74-106) mg/dL Calcium 7.9 L (8.5-10.1) mg/dL Total Bilirubin 0.5 (0.2-1.0) mg/dL AST 24 (15-37) U/L ALT 33 (12-78) U/L Alkaline Phosphatase 54 (46-116) U/L Total Protein 5.7 L (6.4-8.2) g/dL Albumin 3.0 L (3.4-5.0) g/dL Globulin 2.7 (2.3-3.5) g/dL Albumin/Globulin Ratio 1.1 L (1.2-2.2) Result Diagrams: 04/29/20 13:28 04/29/20 06:03 Abhishek Results Last 24 hrs: Microbiology 04/28/20 17:17 Stool Occult Blood (ABHISHEK) - Final Stool / Feces Sepsis Event Note - Evaluation Sepsis Screening Result: No Definite Risk - Focused Exam Vital Signs: Vital Signs Temp Pulse Resp BP Pulse Ox 04/28/20 16:12 97.4 F 81 20 118/47 L 100 04/28/20 16:03 97.4 F 81 20 118/47 L 100 Problem List Initiated/Reviewed/Updated: Yes Orders Last 24hrs: Active Orders 24 hr Category Date Time Status Patient Status [ADT] Routine ADT 04/28/20 18:39 Ordered Ambulate [RC] QID Care 04/28/20 18:39 Ordered Blood Glucose Check, Bedside [RC] QIDACANDBED Care 04/28/20 18:39 Ordered Cardiac Monitoring [RC] .As Directed Care 04/28/20 18:42 Ordered Height and Weight [RC] UPON Care 04/28/20 18:39 Ordered Intake and Output [RC] QSHIFT Care 04/28/20 18:42 Ordered May Shower [RC] ASDIRECTED Care 04/28/20 18:39 Ordered Oxygen Therapy [RC] PRN Care 04/28/20 18:39 Ordered Up ad Jany [RC] ASDIRECTED Care 04/28/20 18:39 Ordered Up to Chair [RC] QID Care 04/28/20 18:39 Ordered VTE/DVT Education [RC] Per Unit Routine Care 04/28/20 18:39 Ordered Vital Signs [RC] Q4H Care 04/28/20 18:39 Ordered BASIC METABOLIC PANEL,BMP [CHEM] AM Lab 04/29/20 05:11 Ordered CBC WITH AUTO DIFF [HEME] AM Lab 04/29/20 05:11 Ordered GLUCOSE POC LAB TO COLLECT JPM [POC] QIDACANDBED Lab 04/28/20 21:00 Ordered RED BLOOD CELLS LP [BBK] Stat Lab 04/28/20 17:51 Ordered TYPE AND SCREEN [BBK] Stat Lab 04/28/20 17:51 Ordered UA W/MICROSCOPIC [URIN] Urgent Lab 04/28/20 17:17 Ordered Ascorbic Acid [Vitamin C] Med 04/28/20 21:00 Ordered 500 mg PO BID Ciprofloxacin [Ciprofloxacin HCl] Med 04/28/20 21:00 Ordered 500 mg PO BID Sodium Chloride 0.9% [Normal Saline] 1,000 ml Med 04/28/20 17:30 Active IV ASDIRECTED Tamsulosin [Flomax] Med 04/29/20 09:00 Ordered 0.4 mg PO DAILY atorvaSTATin [Lipitor] Med 04/28/20 21:00 Ordered 80 mg PO BEDTIME Resuscitation Status Routine Resus Stat 04/28/20 18:39 Ordered Medication Orders Ascorbic Acid (Vitamin C) 500 mg PO BID ROSE Ciprofloxacin (Ciprofloxacin Hcl) 500 mg PO BID ROSE Sodium Chloride (Normal Saline) 1,000 mls @ 500 mls/hr IV ASDIRECTED ROSE Last Admin: 04/28/20 18:21 Dose: 500 mls/hr Documented by: JORGE Non-Formulary Medication (Atorvastatin [Lipitor]) 80 mg PO BEDTIME ROSE Tamsulosin HCl (Flomax) 0.4 mg PO DAILY ROSE Assessment/Plan Comment:: Assessment?Plan #1. MDS with Anemia. PLT 37 K/uL, Hb. 6.7, WBC 1.5. Will T&C for 2 units of Pac Cells. Will speak with the oncologist tomorrow. Will hold Plavix presently. #2, DM Type II: Will continue with insulin as needed. 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
[2020-04-28] MEDS ORDERED: FLU Vacc QV2020-21(65YR UP)/PF 240 MCG/0.7 ML Syringe IM ONE (20:00)
[2020-04-28] MEDS ORDERED: atorvaSTATin 20 MG Tab PO SCH (21:00)
[2020-04-28] MEDS: Ascorbic Acid 500 MG Tab PO SCH (22:20)
[2020-04-28] MEDS: Ciprofloxacin 500 MG Tab PO SCH (22:20)
[2020-04-29] MEDS: Ascorbic Acid 500 MG Tab PO SCH ×2 (09:19→21:27)
[2020-04-29] MEDS ORDERED: 50% Dextrose in Water 50 ML Syringe IVPUSH PRN (12:20)
[2020-04-29] MEDS ORDERED: Glucagon,Human Recombinant 1 MG Vial IM PRN (12:20)
[2020-04-29] MEDS: Insulin Lispro 100 Unit/ML 3 ML KwikPen SUBCUT SCH ×3 (12:54→21:24)
[2020-04-29] MEDS: Ciprofloxacin 500 MG Tab PO SCH ×2 (13:57→21:26)
[2020-04-29] MEDS: Tamsulosin 0.4 MG Cap.ER*POM PO SCH (13:58)
--- NOTE | 2020-04-29 14:13 | PCM.PN ---
- General Info Date of Service: 04/29/20 Subjective Update: He states that he is feeling well the present time still concerned about the drop in hemoglobin. Functional Status: Reports: Pain Controlled - Review of Systems General: Reports: Weakness HEENT: Reports: No Symptoms Pulmonary: Reports: Shortness of Breath Cardiovascular: Reports: No Symptoms Gastrointestinal: Reports: No Symptoms Genitourinary: Reports: No Symptoms Musculoskeletal: Reports: No Symptoms Skin: Reports: No Symptoms Neurological: Reports: No Symptoms, Difficulty Walking, Weakness Psychiatric: Reports: No Symptoms - Patient Data Vitals - Most Recent: Last Vital Signs Temp 97.1 F 04/29/20 12:15 Pulse 78 04/29/20 12:15 Resp 18 04/29/20 12:15 BP 127/57 L 04/29/20 12:15 Pulse Ox 98 04/29/20 07:36 Weight - Most Recent: 216 lb I&O - Last 24 Hours: Intake & Output 04/28/20 04/29/20 04/29/20 22:59 06:59 14:59 Intake Total 0 780 646 Output Total 450 950 Balance 0 330 -304 Lab Results Last 24 Hours: Laboratory Results - last 24 hr 04/28/20 04/28/20 04/28/20 Range/Units 17:30 17:30 17:51 WBC 1.5 L (4.5-11.0) K/uL RBC 2.39 L (4.30-5.90) M/uL Hgb 6.7 L* (12.0-15.0) g/dL Hct 21.8 L (40.0-54.0) % MCV 91 (80-98) fL MCH 28 (27-31) pg MCHC 31 L (32-36) % Plt Count 37 L (150-400) K/uL Neut % (Auto) 38 (36-66) % Lymph % (Auto) 58 H (24-44) % [place] % (Auto) 5 (2-6) % Eos % (Auto) 0 L (2-4) % Baso % (Auto) 0 (0-1) % Add Manual Diff Neutrophils % (Manual) Band Neutrophils % Lymphocytes % (Manual) Monocytes % (Manual) Eosinophils % (Manual) Basophils % (Manual) Metamyelocytes % Myelocytes % Promyelocytes % Blast Cells % Plasma Cell % (Manual) Nucleated RBCs Differential Comment Bilobed Neuts Hypersegmented Neuts Atypical Lymphocytes Reactive Lymphocytes Smudge Cells WBC Morphology Comment Polychromasia Hypochromasia Poikilocytosis Anisocytosis Microcytosis Macrocytosis Spherocytes Sickle Cells Target Cells Tear Drop Cells Ovalocytes Stomatocytes Helmet Cells Rola Cells Rouleaux Schistocytes RBC Morph Comment Percent Retic (0.5-1.5) % Sodium 131 L (140-148) mmol/L Potassium 4.2 (3.6-5.2) mmol/L Chloride 99 L (100-108) mmol/L Carbon Dioxide 24 (21-32) mmol/L Anion Gap 12.2 (5.0-14.0) mmol/L BUN 25 H (7-18) mg/dL Creatinine 1.2 (0.8-1.3) mg/dL Est Cr Clr Drug Dosing 51.54 mL/min Estimated GFR (MDRD) 58 L (>60) Glucose 316 H (74-106) mg/dL POC Glucose (74-106) MG/DL Calcium 7.9 L (8.5-10.1) mg/dL Total Bilirubin 0.5 (0.2-1.0) mg/dL AST 24 (15-37) U/L ALT 33 (12-78) U/L Alkaline Phosphatase 54 (46-116) U/L Total Protein 5.7 L (6.4-8.2) g/dL Albumin 3.0 L (3.4-5.0) g/dL Globulin 2.7 (2.3-3.5) g/dL Albumin/Globulin Ratio 1.1 L (1.2-2.2) Urine Color (YELLOW) Urine Appearance (CLEAR) Urine pH (5.0-8.0) Ur Specific [place] (1.008-1.030) Urine Protein (NEGATIVE) mg/dL Urine Glucose (UA) (NEGATIVE) mg/dL Urine Ketones (NEGATIVE) mg/dL Urine Occult Blood (NEGATIVE) Urine Nitrite (NEGATIVE) Urine Bilirubin (NEGATIVE) Urine Urobilinogen (0.2-1.0) EU/dL Ur Leukocyte Esterase (NEGATIVE) Urine RBC (0-5) Urine WBC (0-5) Ur Epithelial Cells Amorphous Sediment Urine Bacteria Urine Mucus Blood Type A POSITIVE Gel Antibody Screen Negative Crossmatch See Detail 04/28/20 04/28/20 04/29/20 Range/Units 20:57 23:37 06:03 WBC Cancelled (4.5-11.0) K/uL RBC Cancelled (4.30-5.90) M/uL Hgb Cancelled (12.0-15.0) g/dL Hct Cancelled (40.0-54.0) % MCV Cancelled (80-98) fL MCH Cancelled (27-31) pg MCHC Cancelled (32-36) % Plt Count Cancelled (150-400) K/uL Neut % (Auto) Cancelled (36-66) % Lymph % (Auto) Cancelled (24-44) % [place] % (Auto) Cancelled (2-6) % Eos % (Auto) Cancelled (2-4) % Baso % (Auto) Cancelled (0-1) % Add Manual Diff Cancelled Neutrophils % (Manual) Cancelled Band Neutrophils % Cancelled Lymphocytes % (Manual) Cancelled Monocytes % (Manual) Cancelled Eosinophils % (Manual) Cancelled Basophils % (Manual) Cancelled Metamyelocytes % Cancelled Myelocytes % Cancelled Promyelocytes % Cancelled Blast Cells % Cancelled Plasma Cell % (Manual) Cancelled Nucleated RBCs Cancelled Differential Comment Cancelled Bilobed Neuts Cancelled Hypersegmented Neuts Cancelled Atypical Lymphocytes Cancelled Reactive Lymphocytes Cancelled Smudge Cells Cancelled WBC Morphology Comment Cancelled Polychromasia Cancelled Hypochromasia Cancelled Poikilocytosis Cancelled Anisocytosis Cancelled Microcytosis Cancelled Macrocytosis Cancelled Spherocytes Cancelled Sickle Cells Cancelled Target Cells Cancelled Tear Drop Cells Cancelled Ovalocytes Cancelled Stomatocytes Cancelled Helmet Cells Cancelled Rola Cells Cancelled Rouleaux Cancelled Schistocytes Cancelled RBC Morph Comment Cancelled Percent Retic (0.5-1.5) % Sodium (140-148) mmol/L Potassium (3.6-5.2) mmol/L Chloride (100-108) mmol/L Carbon Dioxide (21-32) mmol/L Anion Gap (5.0-14.0) mmol/L BUN (7-18) mg/dL Creatinine (0.8-1.3) mg/dL Est Cr Clr Drug Dosing mL/min Estimated GFR (MDRD) (>60) Glucose (74-106) mg/dL POC Glucose 328 H (74-106) MG/DL Calcium (8.5-10.1) mg/dL Total Bilirubin (0.2-1.0) mg/dL AST (15-37) U/L ALT (12-78) U/L Alkaline Phosphatase (46-116) U/L Total Protein (6.4-8.2) g/dL Albumin (3.4-5.0) g/dL Globulin (2.3-3.5) g/dL Albumin/Globulin Ratio (1.2-2.2) Urine Color Yellow (YELLOW) Urine Appearance Clear (CLEAR) Urine pH 5.5 (5.0-8.0) Ur Specific [place] 1.020 (1.008-1.030) Urine Protein Negative (NEGATIVE) mg/dL Urine Glucose (UA) 500 H (NEGATIVE) mg/dL Urine Ketones Negative (NEGATIVE) mg/dL Urine Occult Blood Negative (NEGATIVE) Urine Nitrite Negative (NEGATIVE) Urine Bilirubin Negative (NEGATIVE) Urine Urobilinogen 0.2 (0.2-1.0) EU/dL Ur Leukocyte Esterase Negative (NEGATIVE) Urine RBC 0-5 (0-5) Urine WBC 0-5 (0-5) Ur Epithelial Cells Few Amorphous Sediment Few Urine Bacteria Few Urine Mucus Not seen Blood Type Gel Antibody Screen Crossmatch 04/29/20 04/29/20 04/29/20 Range/Units 06:03 08:10 08:48 WBC 1.1 L (4.5-11.0) K/uL RBC 2.67 L (4.30-5.90) M/uL Hgb 7.8 L (12.0-15.0) g/dL Hct 24.2 L (40.0-54.0) % MCV 91 (80-98) fL MCH 29 (27-31) pg MCHC 32 (32-36) % Plt Count 29 L* (150-400) K/uL Neut % (Auto) (36-66) % Lymph % (Auto) (24-44) % [place] % (Auto) (2-6) % Eos % (Auto) (2-4) % Baso % (Auto) (0-1) % Add Manual Diff Yes Neutrophils % (Manual) 40 Band Neutrophils % Lymphocytes % (Manual) 56 H Monocytes % (Manual) 4 Eosinophils % (Manual) Basophils % (Manual) Metamyelocytes % Myelocytes % Promyelocytes % Blast Cells % Plasma Cell % (Manual) Nucleated RBCs Differential Comment Bilobed Neuts Hypersegmented Neuts Atypical Lymphocytes Reactive Lymphocytes Smudge Cells WBC Morphology Comment Polychromasia Many H Hypochromasia Moderate H Poikilocytosis Few Anisocytosis Many H Microcytosis Many H Macrocytosis Many H Spherocytes Developmental Mathematics Professor Sickle Cells Target Cells Tear Drop Cells Ovalocytes Stomatocytes Helmet Cells [place] Cells Rouleaux Schistocytes Few RBC Morph Comment Percent Retic 6.5 H (0.5-1.5) % Sodium 133 L (140-148) mmol/L Potassium 4.4 (3.6-5.2) mmol/L Chloride 102 (100-108) mmol/L Carbon Dioxide 23 (21-32) mmol/L Anion Gap 12.4 (5.0-14.0) mmol/L BUN 20 H (7-18) mg/dL Creatinine 1.1 (0.8-1.3) mg/dL Est Cr Clr Drug Dosing 56.22 mL/min Estimated GFR (MDRD) > 60 (>60) Glucose 210 H (74-106) mg/dL POC Glucose (74-106) MG/DL Calcium 7.8 L (8.5-10.1) mg/dL Total Bilirubin (0.2-1.0) mg/dL AST (15-37) U/L ALT (12-78) U/L Alkaline Phosphatase (46-116) U/L Total Protein (6.4-8.2) g/dL Albumin (3.4-5.0) g/dL Globulin (2.3-3.5) g/dL Albumin/Globulin Ratio (1.2-2.2) Urine Color (YELLOW) Urine Appearance (CLEAR) Urine pH (5.0-8.0) Ur Specific [place] (1.008-1.030) Urine Protein (NEGATIVE) mg/dL Urine Glucose (UA) (NEGATIVE) mg/dL Urine Ketones (NEGATIVE) mg/dL Urine Occult Blood (NEGATIVE) Urine Nitrite (NEGATIVE) Urine Bilirubin (NEGATIVE) Urine Urobilinogen (0.2-1.0) EU/dL Ur Leukocyte Esterase (NEGATIVE) Urine RBC (0-5) Urine WBC (0-5) Ur Epithelial Cells Amorphous Sediment Urine Bacteria Urine Mucus Blood Type Gel Antibody Screen Crossmatch 04/29/20 04/29/20 Range/Units 11:30 13:28 WBC (4.5-11.0) K/uL RBC (4.30-5.90) M/uL Hgb 8.7 L (12.0-15.0) g/dL Hct (40.0-54.0) % MCV (80-98) fL MCH (27-31) pg MCHC (32-36) % Plt Count (150-400) K/uL Neut % (Auto) (36-66) % Lymph % (Auto) (24-44) % [place] % (Auto) (2-6) % Eos % (Auto) (2-4) % Baso % (Auto) (0-1) % Add Manual Diff Neutrophils % (Manual) Band Neutrophils % Lymphocytes % (Manual) Monocytes % (Manual) Eosinophils % (Manual) Basophils % (Manual) Metamyelocytes % Myelocytes % Promyelocytes % Blast Cells % Plasma Cell % (Manual) Nucleated RBCs Differential Comment Bilobed Neuts Hypersegmented Neuts Atypical Lymphocytes Reactive Lymphocytes Smudge Cells WBC Morphology Comment Polychromasia Hypochromasia Poikilocytosis Anisocytosis Microcytosis Macrocytosis Spherocytes Sickle Cells Target Cells Tear Drop Cells Ovalocytes Stomatocytes Helmet Cells Rola Cells Rouleaux Schistocytes RBC Morph Comment Percent Retic (0.5-1.5) % Sodium (140-148) mmol/L Potassium (3.6-5.2) mmol/L Chloride (100-108) mmol/L Carbon Dioxide (21-32) mmol/L Anion Gap (5.0-14.0) mmol/L BUN (7-18) mg/dL Creatinine (0.8-1.3) mg/dL Est Cr Clr Drug Dosing mL/min Estimated GFR (MDRD) (>60) Glucose (74-106) mg/dL POC Glucose 311 H (74-106) MG/DL Calcium (8.5-10.1) mg/dL Total Bilirubin (0.2-1.0) mg/dL AST (15-37) U/L ALT (12-78) U/L Alkaline Phosphatase (46-116) U/L Total Protein (6.4-8.2) g/dL Albumin (3.4-5.0) g/dL Globulin (2.3-3.5) g/dL Albumin/Globulin Ratio (1.2-2.2) Urine Color (YELLOW) Urine Appearance (CLEAR) Urine pH (5.0-8.0) Ur Specific [place] (1.008-1.030) Urine Protein (NEGATIVE) mg/dL Urine Glucose (UA) (NEGATIVE) mg/dL Urine Ketones (NEGATIVE) mg/dL Urine Occult Blood (NEGATIVE) Urine Nitrite (NEGATIVE) Urine Bilirubin (NEGATIVE) Urine Urobilinogen (0.2-1.0) EU/dL Ur Leukocyte Esterase (NEGATIVE) Urine RBC (0-5) Urine WBC (0-5) Ur Epithelial Cells Amorphous Sediment Urine Bacteria Urine Mucus Blood Type Gel Antibody Screen Crossmatch Abhishek Results Last 24 Hours: Microbiology 04/28/20 17:17 Stool Occult Blood (ABHISHEK) - Final Stool / Feces Med Orders - Current: Current Medications Ascorbic Acid (Vitamin C) 500 mg PO BID [facility] Last Admin: 04/29/20 09:19 Dose: 500 mg Documented by: Ciprofloxacin (Ciprofloxacin Hcl) 500 mg PO BID [facility] Last Admin: 04/29/20 13:57 Dose: 500 mg Documented by: Dextrose/Water (Dextrose 50% In Water) 50 ml IVPUSH ASDIRECTED PRN PRN Reason: Hypoglycemia Glucagon (Glucagen) 1 mg IM ASDIRECTED PRN PRN Reason: Hypoglycemia Insulin Human Lispro (Humalog) 0 unit SUBCUT QIDACANDBED [facility]; Protocol Last Admin: 04/29/20 12:54 Dose: 8 units Documented by: Atorvastatin 80mg * (Pom*) 1 each PO BEDTIME [facility] Tamsulosin HCl (Flomax) 0.4 mg PO DAILY [facility] Last Admin: 04/29/20 13:58 Dose: 0.4 mg Documented by: Discontinued Medications Atorvastatin Calcium (Lipitor) 80 mg PO BEDTIME [facility] Last Admin: 04/28/20 22:20 Dose: 80 mg Documented by: Sodium Chloride (Normal Saline) 1,000 mls @ 500 mls/hr IV ASDIRECTED [facility] Last Admin: 04/28/20 18:21 Dose: 500 mls/hr Documented by: Influenza Virus Vaccine (Pharmacy To Dose - Influenza Vaccine) 1 each IM ONETIME ONE Stop: 04/28/20 19:38 Influenza Virus Vaccine (Fluzone High-Dose Quad ) 240 mcg IM .ONCE ONE Stop: 04/28/20 20:01 Last Admin: 04/29/20 00:27 Dose: Not Given Documented by: Influenza Virus Vaccine (Fluzone High-Dose Quad ) 240 mcg IM .ONCE ONE Stop: 04/30/20 21:01 Pantoprazole Sodium (Protonix Iv) 40 mg IVPUSH ONETIME ONE Stop: 04/28/20 17:19 Last Admin: 04/28/20 18:22 Dose: 40 mg Documented by: - Exam General: Alert, Oriented HEENT: Pupils Equal, Pupils Reactive, EOMI, Mucous Membr. Moist/[place] Neck: Supple Lungs: Clear to Auscultation, Normal Respiratory Effort Cardiovascular: Regular Rate, Regular Rhythm GI/Abdominal Exam: Normal Bowel Sounds, Soft, Non-Tender, No Organomegaly, No Distention, No Abnormal Bruit, No Mass, Pelvis Stable Extremities: Normal Inspection Peripheral Pulses: 1+: Radial (L), Radial (R) Skin: Warm, Dry, Intact Sepsis Event Note - Evaluation Sepsis Screening Result: No Definite Risk - Focused Exam Vital Signs: Vital Signs Temp Temp Pulse Resp BP Pulse Ox 04/29/20 12:15 97.1 F 78 18 127/57 L 04/29/20 11:45 97.1 F 73 18 120/59 L 04/29/20 11:15 97.7 F 68 20 119/58 L 04/29/20 10:45 97.7 F 72 20 114/55 L 04/29/20 10:30 97.2 F 72 19 111/54 L 04/29/20 10:15 97.7 F 75 20 110/52 L 04/29/20 10:00 97.7 F 77 20 112/52 L 04/29/20 07:36 97.7 F 112/52 L 98 04/29/20 02:45 97.2 F 75 16 105/39 L 98 - Problem List Review Problem List Initiated/Reviewed/Updated: Yes - My Orders Last 24 Hours: My Active Orders 04/28/20 18:39 Patient Status [ADT] Routine Ambulate [RC] QID Blood Glucose Check, Bedside [RC] QIDACANDBED Height and Weight [RC] UPON May Shower [RC] ASDIRECTED Oxygen Therapy [RC] PRN Up ad Jany [RC] ASDIRECTED Up to Chair [RC] QID Vital Signs [RC] Q4H Resuscitation Status Routine 04/28/20 18:42 Cardiac Monitoring [RC] .As Directed Intake and Output [RC] QSHIFT 04/28/20 20:32 Transfuse Red Blood Cells [COMM] Urgent 04/28/20 21:00 Ascorbic Acid [Vitamin C] 500 mg PO BID Ciprofloxacin [Ciprofloxacin HCl] 500 mg PO BID 04/29/20 07:33 Communication Order [RC] ASDIRECTED 04/29/20 09:00 Tamsulosin [Flomax] 0.4 mg PO DAILY 04/29/20 12:20 Dextrose 50% in Water 50 ml IVPUSH ASDIRECTED PRN Glucagon,Human Recombinant [GlucaGen] 1 mg IM ASDIRECTED PRN 04/29/20 12:22 Insulin Lispro [HumaLOG] See Protocol SUBCUT QIDACANDBED 04/29/20 12:36 Communication Order [RC] ASDIRECTED 04/29/20 16:30 GLUCOSE POC LAB TO COLLECT JPM [POC] QIDACANDBED 04/29/20 Dinner Clear Liquid Diet [DIET] 04/29/20 21:00 GLUCOSE POC LAB TO COLLECT JPM [POC] QIDACANDBED Non-Formulary Medication [NF Drug] 1 each PO BEDTIME 04/30/20 05:00 CBC W/O DIFF,HEMOGRAM [HEME] Routine 04/30/20 07:30 GLUCOSE POC LAB TO COLLECT JPM [POC] QIDACANDBED 04/30/20 08:00 CORONAVIRUS COVID-19, JASON Routine 04/30/20 11:30 GLUCOSE POC LAB TO COLLECT JPM [POC] QIDACANDBED 04/30/20 16:30 GLUCOSE POC LAB TO COLLECT JPM [POC] QIDACANDBED 04/30/20 21:00 GLUCOSE POC LAB TO COLLECT JPM [POC] QIDACANDBED 05/01/20 07:30 GLUCOSE POC LAB TO COLLECT JPM [POC] QIDACANDBED 05/01/20 11:30 GLUCOSE POC LAB TO COLLECT JPM [POC] QIDACANDBED 05/01/20 16:30 GLUCOSE POC LAB TO COLLECT JPM [POC] QIDACANDBED 05/01/20 21:00 GLUCOSE POC LAB TO COLLECT JPM [POC] QIDACANDBED 05/02/20 07:30 GLUCOSE POC LAB TO COLLECT JPM [POC] QIDACANDBED 05/02/20 11:30 GLUCOSE POC LAB TO COLLECT JPM [POC] QIDACANDBED 05/02/20 16:30 GLUCOSE POC LAB TO COLLECT JPM [POC] QIDACANDBED 05/02/20 21:00 GLUCOSE POC LAB TO COLLECT JPM [POC] QIDACANDBED 05/03/20 07:30 GLUCOSE POC LAB TO COLLECT JPM [POC] QIDACANDBED 05/03/20 11:30 GLUCOSE POC LAB TO COLLECT JPM [POC] QIDACANDBED 05/03/20 16:30 GLUCOSE POC LAB TO COLLECT JPM [POC] QIDACANDBED 05/03/20 21:00 GLUCOSE POC LAB TO COLLECT JPM [POC] QIDACANDBED 05/04/20 07:30 GLUCOSE POC LAB TO COLLECT JPM [POC] QIDACANDBED 05/04/20 11:30 GLUCOSE POC LAB TO COLLECT JPM [POC] QIDACANDBED 05/04/20 16:30 GLUCOSE POC LAB TO COLLECT JPM [POC] QIDACANDBED 05/04/20 21:00 GLUCOSE POC LAB TO COLLECT JPM [POC] QIDACANDBED 05/05/20 07:30 GLUCOSE POC LAB TO COLLECT JPM [POC] QIDACANDBED 05/05/20 11:30 GLUCOSE POC LAB TO COLLECT JPM [POC] QIDACANDBED 05/05/20 16:30 GLUCOSE POC LAB TO COLLECT JPM [POC] QIDACANDBED 05/05/20 21:00 GLUCOSE POC LAB TO COLLECT JPM [POC] QIDACANDBED 05/06/20 07:30 GLUCOSE POC LAB TO COLLECT JPM [POC] QIDACANDBED 05/06/20 11:30 GLUCOSE POC LAB TO COLLECT JPM [POC] QIDACANDBED 05/06/20 16:30 GLUCOSE POC LAB TO COLLECT JPM [POC] QIDACANDBED - Plan Plan:: ssessment?Plan #1. MDS with Anemia. PLT 29 K/uL, Hb. 7.8 after 2 units of blood which is inappropriate so he must be losing significant amount of blood. I have scheduled him to have 1 unit of blood at the present time. I'll will do a colonoscopy and EGD on Shahid. I spoke with the oncologist and he agrees with stopping Plavix. L also had a colonoscopy in the past and had polyps. I feel it is important for us to see whether these are bleeding causing significant anemia from blood loss. His reticulocyte count was over 6% which is excellent. #2, DM Type II: Will continue with insulin as needed. 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
[2020-04-29] MEDS ORDERED: ATORVASTATIN 80 MG PO SCH (21:00)
[2020-04-30] MEDS: Insulin Lispro 100 Unit/ML 3 ML KwikPen SUBCUT SCH ×4 (08:55→21:26)
[2020-04-30] MEDS: Tamsulosin 0.4 MG Cap.ER*POM PO SCH (08:55)
[2020-04-30] MEDS: Ascorbic Acid 500 MG Tab PO SCH ×2 (08:55→20:28)
[2020-04-30] MEDS: Ciprofloxacin 500 MG Tab PO SCH ×2 (08:55→20:28)
[2020-04-30] MEDS ORDERED: Bisacodyl 5 MG Tab PO ONE ×2 (09:00→20:00)
[2020-04-30] MEDS ORDERED: Polyethylene Glycol 3350 Powder 238 GM Bot PO ONE (17:00)
--- NOTE | 2020-04-30 18:26 | PCM.PN ---
- General Info Date of Service: 04/30/20 Subjective Update: He has no complaints at the present time. He denies any black stools. Functional Status: Reports: Pain Controlled - Review of Systems General: Reports: Weakness, Fatigue HEENT: Reports: No Symptoms Pulmonary: Reports: No Symptoms Cardiovascular: Reports: No Symptoms Gastrointestinal: Reports: No Symptoms Genitourinary: Reports: No Symptoms Musculoskeletal: Reports: No Symptoms Skin: Reports: No Symptoms Neurological: Reports: No Symptoms Psychiatric: Reports: No Symptoms - Patient Data Vitals - Most Recent: Last Vital Signs Temp 97.2 F 04/30/20 18:06 Pulse 64 04/30/20 18:06 Resp 18 04/30/20 18:06 BP 131/53 L 04/30/20 18:06 Pulse Ox 99 04/30/20 18:06 Weight - Most Recent: 211 lb 3.2 oz I&O - Last 24 Hours: Intake & Output 04/30/20 04/30/20 04/30/20 06:59 14:59 22:59 Intake Total 300 1200 Balance 300 1200 Lab Results Last 24 Hours: Laboratory Results - last 24 hr 04/29/20 04/30/20 04/30/20 Range/Units 21:02 04:10 07:30 WBC 1.2 L (4.5-11.0) K/uL RBC 3.01 L (4.30-5.90) M/uL Hgb 8.7 L (12.0-15.0) g/dL Hct 27.3 L (40.0-54.0) % MCV 91 (80-98) fL MCH 29 (27-31) pg MCHC 32 (32-36) % Plt Count 25 L* (150-400) K/uL POC Glucose 300 H 220 H (74-106) MG/DL SARS-CoV-2 RNA (JASON) (NEGATIVE) 04/30/20 04/30/20 04/30/20 Range/Units 11:30 14:30 16:50 WBC (4.5-11.0) K/uL RBC (4.30-5.90) M/uL Hgb (12.0-15.0) g/dL Hct (40.0-54.0) % MCV (80-98) fL MCH (27-31) pg MCHC (32-36) % Plt Count (150-400) K/uL POC Glucose 216 H 156 H (74-106) MG/DL SARS-CoV-2 RNA (JASON) Negative (NEGATIVE) Med Orders - Current: Current Medications Ascorbic Acid (Vitamin C) 500 mg PO BID [facility] Last Admin: 04/30/20 08:55 Dose: 500 mg Documented by: Atorvastatin Calcium (Lipitor) 80 mg PO BEDTIME [facility] Bisacodyl (Dulcolax) 10 mg PO ONETIME ONE Stop: 04/30/20 20:01 Ciprofloxacin (Ciprofloxacin Hcl) 500 mg PO BID [facility] Last Admin: 04/30/20 08:55 Dose: 500 mg Documented by: Dextrose/Water (Dextrose 50% In Water) 50 ml IVPUSH ASDIRECTED PRN PRN Reason: Hypoglycemia Glucagon (Glucagen) 1 mg IM ASDIRECTED PRN PRN Reason: Hypoglycemia Insulin Human Lispro (Humalog) 0 unit SUBCUT QIDACANDBED [facility]; Protocol Last Admin: 04/30/20 17:22 Dose: 2 units Documented by: Tamsulosin HCl (Flomax) 0.4 mg PO DAILY [facility] Last Admin: 04/30/20 08:55 Dose: 0.4 mg Documented by: Discontinued Medications Atorvastatin Calcium (Lipitor) 80 mg PO BEDTIME [facility] Last Admin: 04/28/20 22:20 Dose: 80 mg Documented by: Bisacodyl (Dulcolax) 10 mg PO ONETIME ONE Stop: 04/30/20 09:01 Last Admin: 04/30/20 08:55 Dose: 10 mg Documented by: Sodium Chloride (Normal Saline) 1,000 mls @ 500 mls/hr IV ASDIRECTED [facility] Last Admin: 04/28/20 18:21 Dose: 500 mls/hr Documented by: Influenza Virus Vaccine (Pharmacy To Dose - Influenza Vaccine) 1 each IM ONETIME ONE Stop: 04/28/20 19:38 Influenza Virus Vaccine (Fluzone High-Dose Quad 2019-21) 240 mcg IM .ONCE ONE Stop: 04/28/20 20:01 Last Admin: 04/29/20 00:27 Dose: Not Given Documented by: Influenza Virus Vaccine (Fluzone High-Dose Quad 2019-21) 240 mcg IM .ONCE ONE Stop: 04/30/20 21:01 Atorvastatin 80mg * (Pom*) 1 each PO BEDTIME [facility] Last Admin: 04/29/20 21:26 Dose: 1 each Documented by: Pantoprazole Sodium (Protonix Iv) 40 mg IVPUSH ONETIME ONE Stop: 04/28/20 17:19 Last Admin: 04/28/20 18:22 Dose: 40 mg Documented by: Polyethylene Glycol (Miralax) 238 gm PO ONETIME ONE Stop: 04/30/20 17:01 Last Admin: 04/30/20 16:53 Dose: 238 gm Documented by: - Exam General: Alert, Oriented HEENT: Pupils Equal Neck: Supple Lungs: Clear to Auscultation, Normal Respiratory Effort Cardiovascular: Regular Rate, Regular Rhythm GI/Abdominal Exam: Normal Bowel Sounds, Soft, Non-Tender, No Organomegaly, No Distention, No Abnormal Bruit, No Mass, Pelvis Stable Extremities: Normal Inspection, Normal Range of Motion, Non-Tender, No Pedal Edema, Normal Capillary Refill Peripheral Pulses: 1+: Radial (L), Radial (R) Skin: Warm, Dry, Intact Neurological: No New Focal Deficit Psy/Mental Status: Alert, Normal Affect, Normal Mood Sepsis Event Note - Evaluation Sepsis Screening Result: No Definite Risk - Focused Exam Vital Signs: Vital Signs Temp Pulse Resp BP Pulse Ox 04/30/20 18:06 97.2 F 64 18 131/53 L 99 04/30/20 11:16 97.3 F 64 19 127/53 L 100 04/30/20 08:55 97.7 F 70 19 104/81 98 - Problem List Review Problem List Initiated/Reviewed/Updated: Yes - My Orders Last 24 Hours: My Active Orders 04/30/20 08:00 CORONAVIRUS COVID-19, JASON Routine 04/30/20 08:33 Patient Status [ADT] Routine 04/30/20 18:00 Communication Order [RC] ASDIRECTED CBC W/O DIFF,HEMOGRAM [HEME] Routine 04/30/20 20:00 bisacodyL [Dulcolax] 10 mg PO ONETIME ONE 04/30/20 21:00 GLUCOSE POC LAB TO COLLECT JPM [POC] QIDACANDBED atorvaSTATin [Lipitor] 80 mg PO BEDTIME 05/01/20 07:30 GLUCOSE POC LAB TO COLLECT JPM [POC] QIDACANDBED 05/01/20 11:30 GLUCOSE POC LAB TO COLLECT JPM [POC] QIDACANDBED 05/01/20 16:30 GLUCOSE POC LAB TO COLLECT JPM [POC] QIDACANDBED 05/01/20 21:00 GLUCOSE POC LAB TO COLLECT JPM [POC] QIDACANDBED 05/02/20 07:30 GLUCOSE POC LAB TO COLLECT JPM [POC] QIDACANDBED 05/02/20 11:30 GLUCOSE POC LAB TO COLLECT JPM [POC] QIDACANDBED 05/02/20 16:30 GLUCOSE POC LAB TO COLLECT JPM [POC] QIDACANDBED 05/02/20 21:00 GLUCOSE POC LAB TO COLLECT JPM [POC] QIDACANDBED 05/03/20 07:30 GLUCOSE POC LAB TO COLLECT JPM [POC] QIDACANDBED 05/03/20 11:30 GLUCOSE POC LAB TO COLLECT JPM [POC] QIDACANDBED 05/03/20 16:30 GLUCOSE POC LAB TO COLLECT JPM [POC] QIDACANDBED 05/03/20 21:00 GLUCOSE POC LAB TO COLLECT JPM [POC] QIDACANDBED 05/04/20 07:30 GLUCOSE POC LAB TO COLLECT JPM [POC] QIDACANDBED 05/04/20 11:30 GLUCOSE POC LAB TO COLLECT JPM [POC] QIDACANDBED 05/04/20 16:30 GLUCOSE POC LAB TO COLLECT JPM [POC] QIDACANDBED 05/04/20 21:00 GLUCOSE POC LAB TO COLLECT JPM [POC] QIDACANDBED 05/05/20 07:30 GLUCOSE POC LAB TO COLLECT JPM [POC] QIDACANDBED 05/05/20 11:30 GLUCOSE POC LAB TO COLLECT JPM [POC] QIDACANDBED 05/05/20 16:30 GLUCOSE POC LAB TO COLLECT JPM [POC] QIDACANDBED 05/05/20 21:00 GLUCOSE POC LAB TO COLLECT JPM [POC] QIDACANDBED 05/06/20 07:30 GLUCOSE POC LAB TO COLLECT JPM [POC] QIDACANDBED 05/06/20 11:30 GLUCOSE POC LAB TO COLLECT JPM [POC] QIDACANDBED 05/06/20 16:30 GLUCOSE POC LAB TO COLLECT JPM [POC] QIDACANDBED - Plan Plan:: ssessment?Plan #1. MDS with Anemia. PLT 25 K/uL, Hb. 7.8 after 3 units of blood. Stable from yesterday at 8.7. An EGD and colonoscopy is scheduled for tomorrow.. #2, DM Type II: Will continue with insulin as needed. 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 His blood pressure is good control presently.
[2020-04-30] MEDS ORDERED: FLU Vacc QV2020-21(65YR UP)/PF 240 MCG/0.7 ML Syringe IM ONE (21:00)
[2020-04-30] MEDS ORDERED: atorvaSTATin 20 MG Tab PO SCH (21:00)
[2020-05-01] MEDS ORDERED: Propofol 200 MG/20 ML SDV ONE ×2 (06:17→08:16)
[2020-05-01] MEDS ORDERED: Lidocaine 2% 5 ML SDV ONE (06:17)
[2020-05-01] MEDS: Insulin Lispro 100 Unit/ML 3 ML KwikPen SUBCUT SCH ×2 (08:29→11:31)
[2020-05-01] MEDS: Ciprofloxacin 500 MG Tab PO SCH (10:25)
[2020-05-01] MEDS: Tamsulosin 0.4 MG Cap.ER*POM PO SCH (10:25)
[2020-05-01] MEDS: Ascorbic Acid 500 MG Tab PO SCH (10:26)
--- NOTE | 2020-05-01 10:49 | PCM.PN ---
- General Info Date of Service: 05/01/20 Subjective Update: Timoeto states that he's feeling good and wants to go home and have the CAT scan which is scheduled as an outpatient instead of staying in the hospital. Functional Status: Reports: Pain Controlled - Review of Systems General: Reports: Weakness, Fatigue HEENT: Reports: No Symptoms Pulmonary: Reports: No Symptoms Cardiovascular: Reports: No Symptoms Gastrointestinal: Reports: No Symptoms Genitourinary: Reports: No Symptoms Musculoskeletal: Reports: No Symptoms Skin: Reports: No Symptoms Neurological: Reports: Weakness Psychiatric: Reports: No Symptoms - Patient Data Vitals - Most Recent: Last Vital Signs Temp 97.8 F 05/01/20 10:04 Pulse 59 L 05/01/20 10:04 Resp 20 05/01/20 10:04 BP 128/60 05/01/20 10:04 Pulse Ox 99 05/01/20 10:04 Weight - Most Recent: 204 lb 3.2 oz I&O - Last 24 Hours: Intake & Output 04/30/20 05/01/20 05/01/20 22:59 06:59 14:59 Intake Total 1800 Balance 1800 Lab Results Last 24 Hours: Laboratory Results - last 24 hr 04/30/20 04/30/20 04/30/20 Range/Units 11:30 14:30 16:50 WBC (4.5-11.0) K/uL RBC (4.30-5.90) M/uL Hgb (12.0-15.0) g/dL Hct (40.0-54.0) % MCV (80-98) fL MCH (27-31) pg MCHC (32-36) % Plt Count (150-400) K/uL Sodium (140-148) mmol/L Potassium (3.6-5.2) mmol/L Chloride (100-108) mmol/L Carbon Dioxide (21-32) mmol/L Anion Gap (5.0-14.0) mmol/L BUN (7-18) mg/dL Creatinine (0.8-1.3) mg/dL Est Cr Clr Drug Dosing mL/min Estimated GFR (MDRD) (>60) Glucose (74-106) mg/dL POC Glucose 216 H 156 H (74-106) MG/DL Calcium (8.5-10.1) mg/dL Total Bilirubin (0.2-1.0) mg/dL AST (15-37) U/L ALT (12-78) U/L Alkaline Phosphatase (46-116) U/L Total Protein (6.4-8.2) g/dL Albumin (3.4-5.0) g/dL Globulin (2.3-3.5) g/dL Albumin/Globulin Ratio (1.2-2.2) SARS-CoV-2 RNA (JASON) Negative (NEGATIVE) 04/30/20 04/30/20 05/01/20 Range/Units 18:23 21:10 06:58 WBC 1.3 L 1.1 L (4.5-11.0) K/uL RBC 3.15 L 3.04 L (4.30-5.90) M/uL Hgb 8.9 L 8.6 L (12.0-15.0) g/dL Hct 28.7 L 27.8 L (40.0-54.0) % MCV 91 91 (80-98) fL MCH 28 28 (27-31) pg MCHC 31 L 31 L (32-36) % Plt Count 25 L* 22 L* (150-400) K/uL Sodium (140-148) mmol/L Potassium (3.6-5.2) mmol/L Chloride (100-108) mmol/L Carbon Dioxide (21-32) mmol/L Anion Gap (5.0-14.0) mmol/L BUN (7-18) mg/dL Creatinine (0.8-1.3) mg/dL Est Cr Clr Drug Dosing mL/min Estimated GFR (MDRD) (>60) Glucose (74-106) mg/dL POC Glucose 266 H (74-106) MG/DL Calcium (8.5-10.1) mg/dL Total Bilirubin (0.2-1.0) mg/dL AST (15-37) U/L ALT (12-78) U/L Alkaline Phosphatase (46-116) U/L Total Protein (6.4-8.2) g/dL Albumin (3.4-5.0) g/dL Globulin (2.3-3.5) g/dL Albumin/Globulin Ratio (1.2-2.2) SARS-CoV-2 RNA (JASON) (NEGATIVE) 05/01/20 05/01/20 Range/Units 07:30 09:26 WBC (4.5-11.0) K/uL RBC (4.30-5.90) M/uL Hgb (12.0-15.0) g/dL Hct (40.0-54.0) % MCV (80-98) fL MCH (27-31) pg MCHC (32-36) % Plt Count (150-400) K/uL Sodium 136 L (140-148) mmol/L Potassium 4.2 (3.6-5.2) mmol/L Chloride 102 (100-108) mmol/L Carbon Dioxide 24 (21-32) mmol/L Anion Gap 14.2 H (5.0-14.0) mmol/L BUN 15 (7-18) mg/dL Creatinine 1.1 (0.8-1.3) mg/dL Est Cr Clr Drug Dosing 56.22 mL/min Estimated GFR (MDRD) > 60 (>60) Glucose 178 H (74-106) mg/dL POC Glucose 167 H (74-106) MG/DL Calcium 7.9 L (8.5-10.1) mg/dL Total Bilirubin 1.2 H D (0.2-1.0) mg/dL AST 28 (15-37) U/L ALT 31 (12-78) U/L Alkaline Phosphatase 58 (46-116) U/L Total Protein 5.4 L (6.4-8.2) g/dL Albumin 2.9 L (3.4-5.0) g/dL Globulin 2.5 (2.3-3.5) g/dL Albumin/Globulin Ratio 1.2 (1.2-2.2) SARS-CoV-2 RNA (JASON) (NEGATIVE) Med Orders - Current: Current Medications Ascorbic Acid (Vitamin C) 500 mg PO BID ON LICENSE OF [facility] Last Admin: 05/01/20 10:26 Dose: 500 mg Documented by: Atorvastatin Calcium (Lipitor) 80 mg PO BEDTIME ON LICENSE OF [facility] Last Admin: 04/30/20 20:28 Dose: 80 mg Documented by: Ciprofloxacin (Ciprofloxacin Hcl) 500 mg PO BID ON LICENSE OF [facility] Last Admin: 05/01/20 10:25 Dose: 500 mg Documented by: Dextrose/Water (Dextrose 50% In Water) 50 ml IVPUSH ASDIRECTED PRN PRN Reason: Hypoglycemia Glucagon (Glucagen) 1 mg IM ASDIRECTED PRN PRN Reason: Hypoglycemia Insulin Human Lispro (Humalog) 0 unit SUBCUT QIDACANDBED ON LICENSE OF [facility]; Protocol Last Admin: 05/01/20 08:29 Dose: Not Given Documented by: Tamsulosin HCl (Flomax) 0.4 mg PO DAILY ON LICENSE OF [facility] Last Admin: 05/01/20 10:25 Dose: 0.4 mg Documented by: Discontinued Medications Atorvastatin Calcium (Lipitor) 80 mg PO BEDTIME ON LICENSE OF [facility] Last Admin: 04/28/20 22:20 Dose: 80 mg Documented by: Bisacodyl (Dulcolax) 10 mg PO ONETIME ONE Stop: 04/30/20 09:01 Last Admin: 04/30/20 08:55 Dose: 10 mg Documented by: Bisacodyl (Dulcolax) 10 mg PO ONETIME ONE Stop: 04/30/20 20:01 Last Admin: 04/30/20 20:27 Dose: 10 mg Documented by: Sodium Chloride (Normal Saline) 1,000 mls @ 500 mls/hr IV ASDIRECTED ON LICENSE OF [facility] Last Admin: 04/28/20 18:21 Dose: 500 mls/hr Documented by: Influenza Virus Vaccine (Pharmacy To Dose - Influenza Vaccine) 1 each IM ONETIME ONE Stop: 04/28/20 19:38 Influenza Virus Vaccine (Fluzone High-Dose Quad 2020-21) 240 mcg IM .ONCE ONE Stop: 04/28/20 20:01 Last Admin: 04/29/20 00:27 Dose: Not Given Documented by: Influenza Virus Vaccine (Fluzone High-Dose Quad 2020-21) 240 mcg IM .ONCE ONE Stop: 04/30/20 21:01 Lidocaine (Xylocaine-Mpf 2%) Confirm Administered Dose 5 ml .ROUTE .STK-MED ONE Stop: 05/01/20 06:18 Atorvastatin 80mg * (Pom*) 1 each PO BEDTIME ON LICENSE OF [facility] Last Admin: 04/29/20 21:26 Dose: 1 each Documented by: Pantoprazole Sodium (Protonix Iv) 40 mg IVPUSH ONETIME ONE Stop: 04/28/20 17:19 Last Admin: 04/28/20 18:22 Dose: 40 mg Documented by: Polyethylene Glycol (Miralax) 238 gm PO ONETIME ONE Stop: 04/30/20 17:01 Last Admin: 04/30/20 16:53 Dose: 238 gm Documented by: Propofol (Diprivan 20 Ml) Confirm Administered Dose 200 mg .ROUTE .STK-MED ONE Stop: 05/01/20 06:18 Propofol (Diprivan 20 Ml) Confirm Administered Dose 200 mg .ROUTE .STK-MED ONE Stop: 05/01/20 08:17 - Exam General: Alert, Oriented HEENT: Pupils Equal, Pupils Reactive, EOMI, Mucous Membr. Moist/[place] Neck: Supple Lungs: Clear to Auscultation, Normal Respiratory Effort Cardiovascular: Regular Rate, Regular Rhythm GI/Abdominal Exam: Normal Bowel Sounds, Soft, Non-Tender Peripheral Pulses: 1+: Radial (L), Radial (R) Skin: Warm, Dry, Intact Neurological: No New Focal Deficit Psy/Mental Status: Alert, Normal Affect, Normal Mood Sepsis Event Note - Evaluation Sepsis Screening Result: No Definite Risk - Focused Exam Vital Signs: Vital Signs Temp Pulse Resp BP Pulse Ox 05/01/20 10:04 97.8 F 59 L 20 128/60 99 05/01/20 09:55 97.9 F 61 19 164/51 H 99 05/01/20 09:35 62 16 122/60 97 05/01/20 09:19 66 17 127/57 L 97 05/01/20 09:07 97.9 F 64 17 123/60 96 05/01/20 08:50 96.6 F L 62 14 98/47 L 97 05/01/20 08:45 64 14 98/47 L 97 05/01/20 08:40 70 12 103/50 L 98 05/01/20 08:35 64 12 97/46 L 99 05/01/20 08:30 96.1 F L 63 12 92/48 L 99 05/01/20 07:00 97.7 F 66 18 118/54 L 100 05/01/20 04:00 97.2 F 66 16 97/35 L 100 04/30/20 23:25 97.2 F 63 16 125/57 L 100 - Problem List Review Problem List Initiated/Reviewed/Updated: Yes - My Orders Last 24 Hours: My Active Orders 04/30/20 21:00 atorvaSTATin [Lipitor] 80 mg PO BEDTIME 05/01/20 11:30 GLUCOSE POC LAB TO COLLECT JPM [POC] QIDACANDBED 05/01/20 Lunch Consistent Carbohydrate Diet [DIET] 05/01/20 16:30 GLUCOSE POC LAB TO COLLECT JPM [POC] QIDACANDBED 05/01/20 Dinner NPO After Midnight [Nothing per Oral After Midnight Diet] [DIET] 05/01/20 21:00 GLUCOSE POC LAB TO COLLECT JPM [POC] QIDACANDBED 05/02/20 07:30 GLUCOSE POC LAB TO COLLECT JPM [POC] QIDACANDBED 05/02/20 08:00 Abdomen Pelvis w wo Cont [CT] Routine 05/02/20 11:30 GLUCOSE POC LAB TO COLLECT JPM [POC] QIDACANDBED 05/02/20 16:30 GLUCOSE POC LAB TO COLLECT JPM [POC] QIDACANDBED 05/02/20 21:00 GLUCOSE POC LAB TO COLLECT JPM [POC] QIDACANDBED 05/03/20 07:30 GLUCOSE POC LAB TO COLLECT JPM [POC] QIDACANDBED 05/03/20 11:30 GLUCOSE POC LAB TO COLLECT JPM [POC] QIDACANDBED 05/03/20 16:30 GLUCOSE POC LAB TO COLLECT JPM [POC] QIDACANDBED 05/03/20 21:00 GLUCOSE POC LAB TO COLLECT JPM [POC] QIDACANDBED 05/04/20 07:30 GLUCOSE POC LAB TO COLLECT JPM [POC] QIDACANDBED 05/04/20 11:30 GLUCOSE POC LAB TO COLLECT JPM [POC] QIDACANDBED 05/04/20 16:30 GLUCOSE POC LAB TO COLLECT JPM [POC] QIDACANDBED 05/04/20 21:00 GLUCOSE POC LAB TO COLLECT JPM [POC] QIDACANDBED 05/05/20 07:30 GLUCOSE POC LAB TO COLLECT JPM [POC] QIDACANDBED 05/05/20 11:30 GLUCOSE POC LAB TO COLLECT JPM [POC] QIDACANDBED 05/05/20 16:30 GLUCOSE POC LAB TO COLLECT JPM [POC] QIDACANDBED 05/05/20 21:00 GLUCOSE POC LAB TO COLLECT JPM [POC] QIDACANDBED 05/06/20 07:30 GLUCOSE POC LAB TO COLLECT JPM [POC] QIDACANDBED 05/06/20 11:30 GLUCOSE POC LAB TO COLLECT JPM [POC] QIDACANDBED 05/06/20 16:30 GLUCOSE POC LAB TO COLLECT JPM [POC] QIDACANDBED - Plan Plan:: Asessment?Plan #1. MDS with Anemia. PLT 22 K/uL, Hb. 8.6. after 3 units of blood in the last 3 days. The hemoglobin is stable from yesterday. An EGD and colonoscopy was done which showed erythema in the duodenum. The colon showed no active bleeding. There was black water noted throughout the entire colon. No blood seen. There was a small polyp at 20 cm from the rectum appear to be non- cancer but not biopsied because of the low platelets. A CT of the abdomen with contrast is scheduled tomorrow and he wants to go home and come back as an outpatient. #2, DM Type II: Will continue with insulin as needed. 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 His blood pressure is good control presently. Plan is to discharge home today.
--- NOTE | 2020-05-01 10:58 | PCM.DCSUM1 ---
Discharge Summary - Hospital Course Brief History: Timoteo was admitted with a hemoglobin of 6.7. He has a working diagnosis of MDS. He was feeling excessively weak and had 2 blood transfusions earlier in the week. He is getting chemotherapy on a regular basis from [place] in [place]. Diagnosis: Stroke: No - Discharge Data Discharge Date: 05/01/20 Discharge Disposition: Home, Self-Care 01 Condition: Fair - Referral to Home Health Primary Care Physician: Doug Low Sr, MD - Patient Summary/Data Operative Procedure(s) Performed: He did have a esophageal gastroduodenoscopy which showed wall erythema. He also had a colonoscopy which revealed black material throughout the entire colon without active bleeding. There was a small polyp noted at 20 cm, not biopsied because of the low platelets. Planned Operative Procedure(s) after DC: CT of the abdomen looking for blood loss in the small bowel which will be done the day after discharge with IV and oral contrast. Hospital Course: While in the hospital he received 3 units of packed cells and hemoglobin went up from 6.7-8.6 at the time of discharge. His platelets were 22,000 at the time of discharge. - Patient Instructions Diet: Heart Healthy Diet Activity: As Tolerated - Discharge Plan *PRESCRIPTION DRUG MONITORING PROGRAM REVIEWED*: No *COPY OF PRESCRIPTION DRUG MONITORING REPORT IN PATIENT SONU: No Home Medications: Home Meds Insulin Glarg,Human.Rec.Analog [Lantus] 50 units SQ Q12HR 04/01/13 [History] Insulin Lispro [Humalog Kwikpen U-100] 40 unit SQ ASDIRECTED 07/12/15 [History] Liraglutide [Victoza] 1.8 mg SUBCUT DAILY 07/12/15 [History] Ciprofloxacin [Ciprofloxacin HCl] 1 tab PO BID 04/18/19 [History] Ascorbic Acid [Vitamin C with Tameka Hips] 500 mg PO BID 04/28/20 [History] Tamsulosin HCl [Flomax] 0.4 mg PO DAILY 04/28/20 [History] atorvaSTATin [Lipitor] 80 mg PO BEDTIME 04/28/20 [History] Ciprofloxacin [Ciprofloxacin HCl] 500 mg PO BID tablet 05/01/20 [Rx] Glucagon,Human Recombinant [Glucagen] 1 mg IM ASDIRECTED PRN vial 05/01/20 [Rx] Insulin Lispro [Humalog] 0 unit SUBCUT QIDACANDBED pen 05/01/20 [Rx] Forms: ED Department Discharge Referrals: Doug Low Sr, MD [Primary Care Provider] - - Discharge Summary/Plan Comment DC Time >30 min.: No Discharge Summary/Plan Comment: Asessment?Plan #1. MDS with Anemia. PLT 22 K/uL, Hb. 8.6. after 3 units of blood in the last 3 days. The hemoglobin is stable from yesterday. An EGD and colonoscopy was done which showed erythema in the duodenum. The colon showed no active bleeding. There was black water noted throughout the entire colon. No blood seen. There was a small polyp at 20 cm from the rectum appear to be non- cancer but not biopsied because of the low platelets. A CT of the abdomen with contrast is scheduled tomorrow and he wants to go home and come back as an outpatient. #2, DM Type II: Will continue with insulin as needed. 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 His blood pressure is good control presently. Plan is to discharge home today. He should not take Plavix due to the low platelets and bleeding. I did speak with the oncologist and he agreed with stopping Plavix. - General Info Date of Service: 05/01/20 Subjective Update: He is feeling good at the present time and wanting to go home. His hemoglobin is stable at 8.6. Functional Status: Reports: Pain Controlled - Review of Systems General: Reports: Weakness, Fatigue HEENT: Reports: No Symptoms Pulmonary: Reports: No Symptoms Cardiovascular: Reports: No Symptoms Gastrointestinal: Reports: No Symptoms Genitourinary: Reports: No Symptoms Musculoskeletal: Reports: No Symptoms Skin: Reports: No Symptoms Neurological: Reports: No Symptoms Psychiatric: Reports: No Symptoms - Patient Data Vitals - Most Recent: Last Vital Signs Temp 97.8 F 05/01/20 10:04 Pulse 59 L 05/01/20 10:04 Resp 20 05/01/20 10:04 BP 128/60 05/01/20 10:04 Pulse Ox 99 05/01/20 10:04 Weight - Most Recent: 204 lb 3.2 oz I&O - Last 24 hours: Intake & Output 04/30/20 05/01/20 05/01/20 22:59 06:59 14:59 Intake Total 1800 Balance 1800 Lab Results - Last 24 hrs: Laboratory Results - last 24 hr 04/30/20 04/30/20 04/30/20 Range/Units 11:30 14:30 16:50 WBC (4.5-11.0) K/uL RBC (4.30-5.90) M/uL Hgb (12.0-15.0) g/dL Hct (40.0-54.0) % MCV (80-98) fL MCH (27-31) pg MCHC (32-36) % Plt Count (150-400) K/uL Sodium (140-148) mmol/L Potassium (3.6-5.2) mmol/L Chloride (100-108) mmol/L Carbon Dioxide (21-32) mmol/L Anion Gap (5.0-14.0) mmol/L BUN (7-18) mg/dL Creatinine (0.8-1.3) mg/dL Est Cr Clr Drug Dosing mL/min Estimated GFR (MDRD) (>60) Glucose (74-106) mg/dL POC Glucose 216 H 156 H (74-106) MG/DL Calcium (8.5-10.1) mg/dL Total Bilirubin (0.2-1.0) mg/dL AST (15-37) U/L ALT (12-78) U/L Alkaline Phosphatase (46-116) U/L Total Protein (6.4-8.2) g/dL Albumin (3.4-5.0) g/dL Globulin (2.3-3.5) g/dL Albumin/Globulin Ratio (1.2-2.2) SARS-CoV-2 RNA (JASON) Negative (NEGATIVE) 04/30/20 04/30/20 05/01/20 Range/Units 18:23 21:10 06:58 WBC 1.3 L 1.1 L (4.5-11.0) K/uL RBC 3.15 L 3.04 L (4.30-5.90) M/uL Hgb 8.9 L 8.6 L (12.0-15.0) g/dL Hct 28.7 L 27.8 L (40.0-54.0) % MCV 91 91 (80-98) fL MCH 28 28 (27-31) pg MCHC 31 L 31 L (32-36) % Plt Count 25 L* 22 L* (150-400) K/uL Sodium (140-148) mmol/L Potassium (3.6-5.2) mmol/L Chloride (100-108) mmol/L Carbon Dioxide (21-32) mmol/L Anion Gap (5.0-14.0) mmol/L BUN (7-18) mg/dL Creatinine (0.8-1.3) mg/dL Est Cr Clr Drug Dosing mL/min Estimated GFR (MDRD) (>60) Glucose (74-106) mg/dL POC Glucose 266 H (74-106) MG/DL Calcium (8.5-10.1) mg/dL Total Bilirubin (0.2-1.0) mg/dL AST (15-37) U/L ALT (12-78) U/L Alkaline Phosphatase (46-116) U/L Total Protein (6.4-8.2) g/dL Albumin (3.4-5.0) g/dL Globulin (2.3-3.5) g/dL Albumin/Globulin Ratio (1.2-2.2) SARS-CoV-2 RNA (JASON) (NEGATIVE) 05/01/20 05/01/20 Range/Units 07:30 09:26 WBC (4.5-11.0) K/uL RBC (4.30-5.90) M/uL Hgb (12.0-15.0) g/dL Hct (40.0-54.0) % MCV (80-98) fL MCH (27-31) pg MCHC (32-36) % Plt Count (150-400) K/uL Sodium 136 L (140-148) mmol/L Potassium 4.2 (3.6-5.2) mmol/L Chloride 102 (100-108) mmol/L Carbon Dioxide 24 (21-32) mmol/L Anion Gap 14.2 H (5.0-14.0) mmol/L BUN 15 (7-18) mg/dL Creatinine 1.1 (0.8-1.3) mg/dL Est Cr Clr Drug Dosing 56.22 mL/min Estimated GFR (MDRD) > 60 (>60) Glucose 178 H (74-106) mg/dL POC Glucose 167 H (74-106) MG/DL Calcium 7.9 L (8.5-10.1) mg/dL Total Bilirubin 1.2 H D (0.2-1.0) mg/dL AST 28 (15-37) U/L ALT 31 (12-78) U/L Alkaline Phosphatase 58 (46-116) U/L Total Protein 5.4 L (6.4-8.2) g/dL Albumin 2.9 L (3.4-5.0) g/dL Globulin 2.5 (2.3-3.5) g/dL Albumin/Globulin Ratio 1.2 (1.2-2.2) SARS-CoV-2 RNA (JASON) (NEGATIVE) Med Orders - Current: Current Medications Ascorbic Acid (Vitamin C) 500 mg PO BID [facility] Last Admin: 05/01/20 10:26 Dose: 500 mg Documented by: Atorvastatin Calcium (Lipitor) 80 mg PO BEDTIME [facility] Last Admin: 04/30/20 20:28 Dose: 80 mg Documented by: Ciprofloxacin (Ciprofloxacin Hcl) 500 mg PO BID [facility] Last Admin: 05/01/20 10:25 Dose: 500 mg Documented by: Dextrose/Water (Dextrose 50% In Water) 50 ml IVPUSH ASDIRECTED PRN PRN Reason: Hypoglycemia Glucagon (Glucagen) 1 mg IM ASDIRECTED PRN PRN Reason: Hypoglycemia Insulin Human Lispro (Humalog) 0 unit SUBCUT QIDACANDBED [facility]; Protocol Last Admin: 05/01/20 08:29 Dose: Not Given Documented by: Tamsulosin HCl (Flomax) 0.4 mg PO DAILY [facility] Last Admin: 05/01/20 10:25 Dose: 0.4 mg Documented by: Discontinued Medications Atorvastatin Calcium (Lipitor) 80 mg PO BEDTIME [facility] Last Admin: 04/28/20 22:20 Dose: 80 mg Documented by: Bisacodyl (Dulcolax) 10 mg PO ONETIME ONE Stop: 04/30/20 09:01 Last Admin: 04/30/20 08:55 Dose: 10 mg Documented by: Bisacodyl (Dulcolax) 10 mg PO ONETIME ONE Stop: 04/30/20 20:01 Last Admin: 04/30/20 20:27 Dose: 10 mg Documented by: Sodium Chloride (Normal Saline) 1,000 mls @ 500 mls/hr IV ASDIRECTED [facility] Last Admin: 04/28/20 18:21 Dose: 500 mls/hr Documented by: Influenza Virus Vaccine (Pharmacy To Dose - Influenza Vaccine) 1 each IM ONETIME ONE Stop: 04/28/20 19:38 Influenza Virus Vaccine (Fluzone High-Dose Quad ) 240 mcg IM .ONCE ONE Stop: 04/28/20 20:01 Last Admin: 04/29/20 00:27 Dose: Not Given Documented by: Influenza Virus Vaccine (Fluzone High-Dose Quad ) 240 mcg IM .ONCE ONE Stop: 04/30/20 21:01 Lidocaine (Xylocaine-Mpf 2%) Confirm Administered Dose 5 ml .ROUTE .STK-MED ONE Stop: 05/01/20 06:18 Atorvastatin 80mg * (Pom*) 1 each PO BEDTIME [facility] Last Admin: 04/29/20 21:26 Dose: 1 each Documented by: Pantoprazole Sodium (Protonix Iv) 40 mg IVPUSH ONETIME ONE Stop: 04/28/20 17:19 Last Admin: 04/28/20 18:22 Dose: 40 mg Documented by: Polyethylene Glycol (Miralax) 238 gm PO ONETIME ONE Stop: 04/30/20 17:01 Last Admin: 04/30/20 16:53 Dose: 238 gm Documented by: Propofol (Diprivan 20 Ml) Confirm Administered Dose 200 mg .ROUTE .STK-MED ONE Stop: 05/01/20 06:18 Propofol (Diprivan 20 Ml) Confirm Administered Dose 200 mg .ROUTE .STK-MED ONE Stop: 05/01/20 08:17 - Exam General: Reports: Alert, Oriented HEENT: Reports: Pupils Equal, Pupils Reactive, EOMI, Mucous Membr. Moist/[place] Neck: Reports: Supple Lungs: Reports: Clear to Auscultation, Normal Respiratory Effort Cardiovascular: Reports: Regular Rate, Regular Rhythm GI/Abdominal Exam: Normal Bowel Sounds, Soft, Non-Tender, No Organomegaly, No Distention, No Abnormal Bruit, No Mass, Pelvis Stable Extremities: Normal Inspection, Normal Range of Motion, Non-Tender, No Pedal Edema, Normal Capillary Refill Skin: Reports: Warm, Dry, Intact Psy/Mental Status: Reports: Alert, Normal Affect, Normal Mood
[2020-05-01 11:37] VITALS: BP 112/50; PULSE 77
--- NOTE | 2020-05-02 08:49 | PROC ---
DATE OF PROCEDURE: 05/01/2020 SURGEON: Doug Low MD INDICATIONS: Timoteo is a 80-year-old male, who comes in because of gastrointestinal blood loss. He has a history of MDS and is on chemotherapy. His hemoglobin initially when he came into the hospital, it was 6.7, gave him 2 units of blood. The next morning, it was 7.8. They gave him 1 more unit and it was 8.7 yesterday. This morning, it was 8.6. The other problem is his platelet count has been in 40,000s for number of months, it was 22,000 this morning prior to the procedure. PROCEDURE: Esophagogastroduodenoscopy. The risks and benefits that were explained to the patient was noted in the OR. During the procedure, propofol was given, a total of 260 mg was given for the EGD and the colonoscopy. PROCEDURE IN DETAIL: The Olympus 180 scope was used, was placed into the pharynx into the esophagus without difficulty and advanced under direct vision into the body of the stomach. The pylorus was identified and advanced into the 1st and 2nd part of the duodenum. Upon retraction of the tube, no lesions or ulceration, no abnormality throughout the entire 1st part of the small bowel as well as the stomach. Retroflexion of the tube in the fundus revealed no abnormality as well. There was mild distal esophageal erythema. Otherwise, no pathology was noted. The vocal cords moved symmetrically. No obvious pathology was seen. The tube was removed. The patient tolerated the procedure well. PREOPERATIVE DIAGNOSIS: Gastrointestinal blood loss. POSTOPERATIVE DIAGNOSIS: There is mild duodenal erythema in the duodenum, but no active bleeding was noted. There was distal esophagitis, but no active bleeding was noted. Doug Low MD /[id number]
--- NOTE | 2020-05-02 09:16 | PROC ---
DATE OF PROCEDURE: 05/01/2020 SURGEON: Doug Low MD PROCEDURE: Colonoscopy. INDICATIONS: This is being done because of GI blood loss. He has had a total of 5 units of blood in the last week with hemoglobin now of 8.6, platelets were 22,000 this morning. He does have a history of MDS. His reticulocyte count yesterday was over 6%. PROCEDURE IN DETAIL: The Olympus 180L scope was used. With a gloved finger, the rectum was examined. The tube was placed into the rectum and advanced under direct vision. We did get to the cecum. Upon retraction of the tube, no lesions or ulceration, no abnormality until we got to 20 cm, noted a small polyp. There was black stool noted throughout the entire colon. The small polyp was not biopsied due to the low platelets and this is not the source of his bleeding. The tube was removed. The patient tolerated the procedure well. PREOPERATIVE DIAGNOSIS: Gastrointestinal blood loss. POSTOPERATIVE DIAGNOSIS: The colon is not the source of the bleeding. There is a small polyp noted at 20 cm, again not the source of the bleeding. Doug Low MD /[id number]
== END 2020-05-01 13:45 | disposition home or self-care (01) | DRG 812 ==
LOC: JP.ED 15:15 → JP.MS 18:39 → UNDOADMOB 18:39 → INTOOBSV 04-29 08:30 → OBSVTOIN 04-29 08:30 → JP.MS 04-30 18:17 → UNDODISIN 05-01 13:45
PROVIDERS: ADMIT Internal Medicine; ATTEND Internal Medicine
PROC: 0DJ08ZZ Inspection of Upper Intestinal Tract, Via Natural or Artificial Opening Endoscopic (ICD-10-PCS; principal; 2020-05-01)
PROC: 0DJD8ZZ Inspection of Lower Intestinal Tract, Via Natural or Artificial Opening Endoscopic (ICD-10-PCS; 2020-05-01)
DX: D46.4 Refractory anemia, unspecified (principal); C41.9 Malignant neoplasm of bone and articular cartilage, unspecified; R19.5 Other fecal abnormalities; H91.90 Unspecified hearing loss, unspecified ear; H54.7 Unspecified visual loss; D46.9 Myelodysplastic syndrome, unspecified; E78.5 Hyperlipidemia, unspecified; E78.00 Pure hypercholesterolemia, unspecified; E11.9 Type 2 diabetes mellitus without complications; Z79.4 Long term (current) use of insulin; G47.30 Sleep apnea, unspecified; M19.90 Unspecified osteoarthritis, unspecified site; E11.69 Type 2 diabetes mellitus with other specified complication; G62.9 Polyneuropathy, unspecified; Z87.891 Personal history of nicotine dependence; Z79.02 Long term (current) use of antithrombotics/antiplatelets; I25.10 Atherosclerotic heart disease of native coronary artery without angina pectoris; Z79.899 Other long term (current) drug therapy; Z88.8 Allergy status to other drugs, medicaments and biological substances; I10 Essential (primary) hypertension; I25.2 Old myocardial infarction; Z95.5 Presence of coronary angioplasty implant and graft; G47.33 Obstructive sleep apnea (adult) (pediatric); Z87.01 Personal history of pneumonia (recurrent); Z98.42 Cataract extraction status, left eye; Z98.41 Cataract extraction status, right eye; K20.90 Esophagitis, unspecified without bleeding; K63.5 Polyp of colon; Z20.828 Contact with and (suspected) exposure to other viral communicable diseases
CPT/HCPCS: 36415; 36430; 80048; 80053; 81001; 82272; 82962; 85018; 85025; 85027; 85045; 86850; 86900; 86901; 86920; 86922; 96374; 99285-25; A9270-GY; C9113; J1815; J2001; J2704; J7030; P9016; U0002

== ENCOUNTER 2020-05-22 10:59 | Observation (INO) | payer MEDICARE ==
--- NOTE | 2020-05-22 12:14 | EDM.PDOC ---
ED HPI GENERAL MEDICAL PROBLEM - General Chief Complaint: General Stated Complaint: CANCER PT Time Seen by Provider: 05/22/20 12:08 Source of Information: Reports: Patient, Family History Limitations: Reports: No Limitations - History of Present Illness INITIAL COMMENTS - FREE TEXT/NARRATIVE: pt has had 2 syncopal episodes starting last nit. He was to have blood tranfused tomorrow. He has not had chest pain. He is still having some black tarry stools but these are firm. Onset: Today, Other (pt had 2 syncopal episodes at home. ) Duration: Hour(s): Location: Reports: Generalized Associated Symptoms: Reports: No Other Symptoms - Related Data Allergies Allergy/AdvReac Type Severity Reaction Status Date / Time metformin Allergy Rash Verified 05/22/20 11:13 Home Meds: Home Meds Insulin Glarg,Human.Rec.Analog [Lantus] 50 units SQ Q12HR 04/01/13 [History] Insulin Lispro [Humalog Kwikpen U-100] 40 unit SQ ASDIRECTED 07/12/15 [History] Liraglutide [Victoza] 1.8 mg SUBCUT DAILY 07/12/15 [History] Ciprofloxacin [Ciprofloxacin HCl] 1 tab PO BID 04/18/19 [History] Ascorbic Acid [Vitamin C with Tameka Hips] 500 mg PO BID 04/28/20 [History] Tamsulosin HCl [Flomax] 0.4 mg PO DAILY 04/28/20 [History] atorvaSTATin [Lipitor] 80 mg PO BEDTIME 04/28/20 [History] Ciprofloxacin [Ciprofloxacin HCl] 500 mg PO BID tablet 05/01/20 [Rx] Glucagon,Human Recombinant [Glucagen] 1 mg IM ASDIRECTED PRN vial 05/01/20 [Rx] Insulin Lispro [Humalog] 0 unit SUBCUT QIDACANDBED pen 05/01/20 [Rx] Past Medical History HEENT History: Reports: Cataract, Hard of Hearing, Impaired Vision Cardiovascular History: Reports: CAD, Heart Murmur, High Cholesterol, Hypertension, [place], Stents, Other (See Below) Other Cardiovascular History: history of [place] and stent x1 about 13 years ago according to patient, 3 stents 2 weekas ago Respiratory History: Reports: Pneumonia, Recurrent, Sleep Apnea, Other (See Below) 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 Musculoskeletal History: Reports: Arthritis, Other (See Below) Other Musculoskeletal History: arthritis left ankle and knees Neurological History: Reports: Concussion, Neuropathy, Peripheral Endocrine/Metabolic History: Reports: Diabetes, Type II Hematologic History: Reports: Anemia, Blood Transfusion(s) Oncologic (Cancer) History: Reports: Bone - Infectious Disease History Infectious Disease History: Reports: Chicken Pox - Past Surgical History HEENT Surgical History: Reports: Cataract Surgery, Tonsillectomy Cardiovascular Surgical History: Reports: Carotid Stents Respiratory Surgical History: Reports: None Endocrine Surgical History: Reports: None Neurological Surgical History: Reports: None Musculoskeletal Surgical History: Reports: None Social & Family History - Family History Family Medical History: No Pertinent Family History - Tobacco Use Tobacco Use Status *Q: Never Tobacco User - Caffeine Use Caffeine Use: Reports: Coffee Other Caffeine Use: 1-2 cups per day ED ROS GENERAL - Review of Systems Review Of Systems: See Below Constitutional: Reports: Weakness, Diaphoresis, Other ( syncope) HEENT: Reports: No Symptoms Respiratory: Reports: No Symptoms, Other (sob with actiity) Cardiovascular: Reports: No Symptoms Endocrine: Reports: No Symptoms GI/Abdominal: Reports: Black Stool, Other ( stool is firm. ) : Reports: No Symptoms Musculoskeletal: Reports: No Symptoms Skin: Reports: No Symptoms Neurological: Reports: No Symptoms ED EXAM, GENERAL - Physical Exam Exam: See Below Free Text/Narrative:: pt arrived with a history of 2 syncopal episodes in the last 12 hours. He has still had a black looking stool. He was feeling great until sat. He was scheduled to be seen in [facility] on Saturday. Exam Limited By: No Limitations General Appearance: Alert, No Apparent Distress, Anxious, Other (pt is very pale appearing. ) Ears: Normal TMs Nose: Normal Inspection Throat/Mouth: Normal Inspection Head: Atraumatic Respiratory/Chest: No Respiratory Distress, Other ( sob with any activity. ) Cardiovascular: Regular Rate, Rhythm GI/Abdominal: Soft, Non-Tender (Male) Exam: Deferred Rectal (Males) Exam: Deferred Back Exam: Normal Inspection Extremities: Normal Inspection Neurological: Alert, Oriented, Normal Cognition Course - Vital Signs Last Recorded V/S: Last Vital Signs Temp 36.4 C 05/22/20 11:28 Pulse 79 05/22/20 11:28 Resp 16 05/22/20 11:28 BP 112/60 05/22/20 11:28 Pulse Ox 98 05/22/20 11:28 - Orders/Labs/Meds Orders: Active Orders 24 hr Category Date Time Status COMPREHENSIVE METABOLIC PN,CMP [CHEM] Urgent Lab 05/22/20 11:48 Received RED BLOOD CELLS LP [BBK] Stat Lab 05/22/20 11:58 Ordered TYPE AND SCREEN [BBK] Stat Lab 05/22/20 11:58 Ordered Labs: Laboratory Tests 05/22/20 Range/Units 11:48 WBC 1.2 L (4.5-11.0) K/uL RBC 2.00 L (4.30-5.90) M/uL Hgb 5.6 L* D (12.0-15.0) g/dL Hct 18.1 L (40.0-54.0) % MCV 91 (80-98) fL MCH 28 (27-31) pg MCHC 31 L (32-36) % Plt Count 59 L (150-400) K/uL Neut % (Auto) 50 (36-66) % Lymph % (Auto) 39 (24-44) % Clinch % (Auto) 10 H (2-6) % Eos % (Auto) 0 L (2-4) % Baso % (Auto) 1 (0-1) % - Re-Assessments/Exams Free Text/Narrative Re-Assessment/Exam: 05/22/20 12:16 platlets are low and his hg is 5.6 Departure - Departure Time of Disposition: 12:17 Disposition: Home, Self-Care 01 Condition: Fair Clinical Impression: MDS (myelodysplastic syndrome) - Discharge Information Referrals: Doug Low Sr, MD [Primary Care Provider] - Care Plan Goals: admit to Dr Low Sepsis Event Note (ED) - Evaluation Sepsis Screening Result: No Definite Risk - Focused Exam Vital Signs: Vital Signs Temp Pulse Resp BP Pulse Ox 05/22/20 11:28 36.4 C 79 16 112/60 98 05/22/20 11:13 36.4 C 79 16 112/60 98 - My Orders Last 24 Hours: My Active Orders 05/22/20 11:48 COMPREHENSIVE METABOLIC PN,CMP [CHEM] Urgent 05/22/20 11:58 RED BLOOD CELLS LP [BBK] Stat TYPE AND SCREEN [BBK] Stat - Assessment/Plan Last 24 Hours: My Active Orders 05/22/20 11:48 COMPREHENSIVE METABOLIC PN,CMP [CHEM] Urgent 05/22/20 11:58 RED BLOOD CELLS LP [BBK] Stat TYPE AND SCREEN [BBK] Stat
[2020-05-22] MEDS ORDERED: Sodium Chloride 0.9% 1,000 ML IV SCH ×2 (12:15→20:05)
--- NOTE | 2020-05-22 12:55 | PCM.HP.2 ---
H&P History of Present Illness - General Date of Service: 05/22/20 Source of Information: Patient - History of Present Illness Initial Comments - Free Text/Narative: History of MDS needing blood on a regular basis. Fainted twice today. Found Hb. 5.6 today when he came to the ER. Improves with: Reports: None Worsens with: Reports: Movement Associated Symptoms: Reports: No Other Symptoms - Related Data Allergies/Adverse Reactions: Allergies Allergy/AdvReac Type Severity Reaction Status Date / Time metformin Allergy Rash Verified 05/22/20 11:13 Home Medications: Home Meds Insulin Glarg,Human.Rec.Analog [Lantus] 50 units SQ Q12HR 04/01/13 [History] Insulin Lispro [Humalog Kwikpen U-100] 40 unit SQ ASDIRECTED 07/12/15 [History] Ciprofloxacin [Ciprofloxacin HCl] 1 tab PO BID 04/18/19 [History] Ascorbic Acid [Vitamin C with Tameka Hips] 500 mg PO BID 04/28/20 [History] Tamsulosin HCl [Flomax] 0.4 mg PO DAILY 04/28/20 [History] atorvaSTATin [Lipitor] 80 mg PO BEDTIME 04/28/20 [History] Ciprofloxacin [Ciprofloxacin HCl] 500 mg PO BID tablet 05/01/20 [Rx] Glucagon,Human Recombinant [Glucagen] 1 mg IM ASDIRECTED PRN vial 05/01/20 [Rx] Insulin Lispro [Humalog] 0 unit SUBCUT QIDACANDBED pen 05/01/20 [Rx] Tamsulosin HCl 0.4 mg PO DAILY 05/22/20 [History] Past Medical History HEENT History: Reports: Cataract, Hard of Hearing, Impaired Vision Cardiovascular History: Reports: CAD, Heart Murmur, High Cholesterol, Hypertension, [place], Stents, Other (See Below) Other Cardiovascular History: history of [place] and stent x1 about 13 years ago according to patient, 3 stents 2 weekas ago Respiratory History: Reports: Pneumonia, Recurrent, Sleep Apnea, Other (See Below) 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 Musculoskeletal History: Reports: Arthritis, Other (See Below) Other Musculoskeletal History: arthritis left ankle and knees Neurological History: Reports: Concussion, Neuropathy, Peripheral Endocrine/Metabolic History: Reports: Diabetes, Type II Hematologic History: Reports: Anemia, Blood Transfusion(s) Oncologic (Cancer) History: Reports: Bone - Infectious Disease History Infectious Disease History: Reports: Chicken Pox - Past Surgical History HEENT Surgical History: Reports: Cataract Surgery, Tonsillectomy Cardiovascular Surgical History: Reports: Carotid Stents Respiratory Surgical History: Reports: None Endocrine Surgical History: Reports: None Neurological Surgical History: Reports: None Musculoskeletal Surgical History: Reports: None Social & Family History - Family History Family Medical History: No Pertinent Family History - Tobacco Use Tobacco Use Status *Q: Never Tobacco User - Caffeine Use Caffeine Use: Reports: Coffee Other Caffeine Use: 1-2 cups per day H&P Review of Systems - Review of Systems: Review Of Systems: See Below General: Reports: Weakness HEENT: Reports: No Symptoms Pulmonary: Reports: Shortness of Breath Cardiovascular: Reports: No Symptoms Gastrointestinal: Reports: No Symptoms Genitourinary: Reports: No Symptoms Musculoskeletal: Reports: No Symptoms Skin: Reports: No Symptoms Psychiatric: Reports: No Symptoms Neurological: Reports: Difficulty Walking, Weakness, Gait Disturbance Exam - Exam Exam: See Below - Vital Signs Vital Signs: Last Vital Signs Temp 97.6 F 05/22/20 11:28 Pulse 79 05/22/20 11:28 Resp 16 05/22/20 11:28 BP 112/60 05/22/20 11:28 Pulse Ox 98 05/22/20 11:28 Weight: 204 lb - Exam General: Alert, Oriented, 4 HEENT: PERRLA, Hearing Intact, Mucosa Moist & [place], Nares Patent, Normal Nasal S eptum, Posterior Pharynx Clear, Conjunctiva Clear, EOMI, EACs Clear, TMs Clear Neck: Supple, Trachea Midline, 2 Lungs: Clear to Auscultation, Normal Respiratory Effort Cardiovascular: Regular Rate GI/Abdominal Exam: Normal Bowel Sounds Extremities: Normal Inspection, Normal Range of Motion, Non-Tender, No Pedal Edema, Normal Capillary Refill Peripheral Pulses: 1+: Radial (L), Radial (R) Skin: Warm, Dry, Intact Neurological: Cranial Nerves Intact, Reflexes Equal Bilateral DTR: 1+: Bicep (L), Bicep (R) Psychiatric: Alert, Normal Affect, Normal Mood - Patient Data Lab Results Last 24 hrs: Laboratory Results - last 24 hr 05/22/20 05/22/20 05/22/20 Range/Units 11:48 11:48 11:48 WBC 1.2 L (4.5-11.0) K/uL RBC 2.00 L (4.30-5.90) M/uL Hgb 5.6 L* D (12.0-15.0) g/dL Hct 18.1 L (40.0-54.0) % MCV 91 (80-98) fL MCH 28 (27-31) pg MCHC 31 L (32-36) % Plt Count 59 L (150-400) K/uL Neut % (Auto) 50 (36-66) % Lymph % (Auto) 39 (24-44) % Love % (Auto) 10 H (2-6) % Eos % (Auto) 0 L (2-4) % Baso % (Auto) 1 (0-1) % Sodium 131 L (140-148) mmol/L Potassium 4.2 (3.6-5.2) mmol/L Chloride 96 L (100-108) mmol/L Carbon Dioxide 22 (21-32) mmol/L Anion Gap 17.2 H (5.0-14.0) mmol/L BUN 28 H D (7-18) mg/dL Creatinine 1.4 H (0.8-1.3) mg/dL Est Cr Clr Drug Dosing 44.87 mL/min Estimated GFR (MDRD) 49 L (>60) Glucose 346 H (74-106) mg/dL Calcium 8.0 L (8.5-10.1) mg/dL Total Bilirubin 1.0 (0.2-1.0) mg/dL AST 20 (15-37) U/L ALT 22 (12-78) U/L Alkaline Phosphatase 54 (46-116) U/L Total Protein 5.5 L (6.4-8.2) g/dL Albumin 2.6 L (3.4-5.0) g/dL Globulin 2.9 (2.3-3.5) g/dL Albumin/Globulin Ratio 0.9 L (1.2-2.2) Blood Type A POSITIVE Gel Antibody Screen Negative Crossmatch See Detail Result Diagrams: 05/23/20 17:16 05/23/20 07:33 Sepsis Event Note - Evaluation Sepsis Screening Result: No Definite Risk - Focused Exam Vital Signs: Vital Signs Temp Pulse Resp BP Pulse Ox 05/22/20 11:28 97.6 F 79 16 112/60 98 05/22/20 11:13 97.6 F 79 16 112/60 98 Problem List Initiated/Reviewed/Updated: Yes Orders Last 24hrs: Active Orders 24 hr Category Date Time Status RED BLOOD CELLS LP [BBK] Stat Lab 05/22/20 11:48 Results TYPE AND SCREEN [BBK] Stat Lab 05/22/20 11:48 Results Sodium Chloride 0.9% [Normal Saline] 1,000 ml Med 05/22/20 12:15 Active IV ASDIRECTED Medication Orders Sodium Chloride (Normal Saline) 1,000 mls @ 250 mls/hr IV ASDIRECTED ROSE Last Admin: 05/22/20 12:28 Dose: 250 mls/hr Documented by: HAYDEN Assessment/Plan Comment:: Assessment/Plan: #1. MDS with Anemia: Will admit and Give at least 2 units 2 units of blood. #2. History HTN 112 systolic presently good control of BP. #3. CRF: Stage 3A #4. DM II. On Insulin per sliding scale #5. HLD: Stable #6. ASHD chronic and stable.. - Mortality Measure Prognosis:: Good
[2020-05-22] MEDS ORDERED: 50% Dextrose in Water 50 ML Syringe IVPUSH PRN (13:05)
[2020-05-22] MEDS ORDERED: Glucagon,Human Recombinant 1 MG Vial IM PRN ×2 (13:05)
[2020-05-22] MEDS: Insulin Lispro 100 Unit/ML 3 ML KwikPen SUBCUT SCH ×3 (17:51→21:36)
[2020-05-22] MEDS ORDERED: atorvaSTATin 20 MG Tab PO SCH (21:00)
[2020-05-22] MEDS: ATORVASTATIN 80 MG PO SCH (21:06)
[2020-05-22] MEDS: Ascorbic Acid 500 MG Tab PO SCH (21:07)
[2020-05-22] MEDS: CIPROFLOXACIN 500 MG PO SCH (21:07)
[2020-05-22] MEDS: Insulin Glargine,Human Rec. Analog 100 Units/ML 3 ML Pen SUBCUT SCH (21:36)
[2020-05-23] MEDS ORDERED: Furosemide 20 MG/2 ML VIAL IVPUSH ONE (02:40)
[2020-05-23] MEDS: CIPROFLOXACIN 500 MG PO SCH ×2 (08:38→21:48)
[2020-05-23] MEDS: Ascorbic Acid 500 MG Tab PO SCH ×2 (08:39→21:48)
[2020-05-23] MEDS: Tamsulosin 0.4 MG **PTOM PO SCH (08:39)
[2020-05-23] MEDS: Insulin Glargine,Human Rec. Analog 100 Units/ML 3 ML Pen SUBCUT SCH ×2 (08:39→21:56)
[2020-05-23] MEDS: Insulin Lispro 100 Unit/ML 3 ML KwikPen SUBCUT SCH ×7 (08:40→21:53)
[2020-05-23] MEDS ORDERED: Liraglutide (rDNA Origin) 0.6 MG/0.1 ML 3 ML Pen SUBCUT SCH (09:00)
--- NOTE | 2020-05-23 19:09 | PCM.PN ---
- General Info Date of Service: 05/23/20 Subjective Update: This morning he started to feel much better but still weak. He still doesn't feel entirely normal. Functional Status: Reports: Pain Controlled - Review of Systems General: Reports: Weakness Pulmonary: Reports: Shortness of Breath Cardiovascular: Reports: No Symptoms Gastrointestinal: Reports: No Symptoms Genitourinary: Reports: No Symptoms Musculoskeletal: Reports: No Symptoms Skin: Reports: No Symptoms Psychiatric: Reports: No Symptoms - Patient Data Vitals - Most Recent: Last Vital Signs Temp 98.1 F 05/23/20 16:34 Pulse 82 05/23/20 16:34 Resp 16 05/23/20 16:34 BP 122/50 L 05/23/20 16:34 Pulse Ox 98 05/23/20 16:34 Weight - Most Recent: 208 lb I&O - Last 24 Hours: Intake & Output 05/23/20 05/23/20 05/23/20 06:59 14:59 22:59 Intake Total 625 600 729 Output Total 650 750 Balance -25 -150 729 Lab Results Last 24 Hours: Laboratory Results - last 24 hr 05/22/20 05/22/20 05/22/20 Range/Units 11:48 21:30 21:30 WBC 1.5 L (4.5-11.0) K/uL RBC 2.45 L (4.30-5.90) M/uL Hgb 7.2 L (12.0-15.0) g/dL Hct 22.3 L (40.0-54.0) % MCV 91 (80-98) fL MCH 29 (27-31) pg MCHC 32 (32-36) % Plt Count 49 L (150-400) K/uL Neut % (Auto) 39 (36-66) % Lymph % (Auto) 52 H (24-44) % Clare % (Auto) 9 H (2-6) % Eos % (Auto) 0 L (2-4) % Baso % (Auto) 0 (0-1) % Sodium (140-148) mmol/L Potassium (3.6-5.2) mmol/L Chloride (100-108) mmol/L Carbon Dioxide (21-32) mmol/L Anion Gap (5.0-14.0) mmol/L BUN (7-18) mg/dL Creatinine (0.8-1.3) mg/dL Est Cr Clr Drug Dosing mL/min Estimated GFR (MDRD) (>60) Glucose (74-106) mg/dL POC Glucose 302 H (74-106) MG/DL Calcium (8.5-10.1) mg/dL Blood Type A POSITIVE Gel Antibody Screen Negative Crossmatch See Detail 05/23/20 05/23/20 05/23/20 Range/Units 07:30 07:33 07:33 WBC 1.5 L (4.5-11.0) K/uL RBC 2.96 L (4.30-5.90) M/uL Hgb 8.5 L (12.0-15.0) g/dL Hct 26.9 L (40.0-54.0) % MCV 91 (80-98) fL MCH 29 (27-31) pg MCHC 32 (32-36) % Plt Count 43 L (150-400) K/uL Neut % (Auto) 35 L (36-66) % Lymph % (Auto) 53 H (24-44) % Clare % (Auto) 11 H (2-6) % Eos % (Auto) 1 L (2-4) % Baso % (Auto) 0 (0-1) % Sodium 134 L (140-148) mmol/L Potassium 4.0 (3.6-5.2) mmol/L Chloride 100 (100-108) mmol/L Carbon Dioxide 26 (21-32) mmol/L Anion Gap 12.0 (5.0-14.0) mmol/L BUN 28 H (7-18) mg/dL Creatinine 1.3 (0.8-1.3) mg/dL Est Cr Clr Drug Dosing 48.32 mL/min Estimated GFR (MDRD) 53 L (>60) Glucose 240 H (74-106) mg/dL POC Glucose 222 H (74-106) MG/DL Calcium 7.5 L (8.5-10.1) mg/dL Blood Type Gel Antibody Screen Crossmatch 05/23/20 05/23/20 05/23/20 Range/Units 11:30 16:30 17:16 WBC 1.6 L (4.5-11.0) K/uL RBC 2.92 L (4.30-5.90) M/uL Hgb 8.4 L (12.0-15.0) g/dL Hct 26.4 L (40.0-54.0) % MCV 90 (80-98) fL MCH 29 (27-31) pg MCHC 32 (32-36) % Plt Count 62 L (150-400) K/uL Neut % (Auto) 41 (36-66) % Lymph % (Auto) 47 H (24-44) % Clare % (Auto) 12 H (2-6) % Eos % (Auto) 1 L (2-4) % Baso % (Auto) 0 (0-1) % Sodium (140-148) mmol/L Potassium (3.6-5.2) mmol/L Chloride (100-108) mmol/L Carbon Dioxide (21-32) mmol/L Anion Gap (5.0-14.0) mmol/L BUN (7-18) mg/dL Creatinine (0.8-1.3) mg/dL Est Cr Clr Drug Dosing mL/min Estimated GFR (MDRD) (>60) Glucose (74-106) mg/dL POC Glucose 274 H 223 H (74-106) MG/DL Calcium (8.5-10.1) mg/dL Blood Type Gel Antibody Screen Crossmatch Med Orders - Current: Current Medications Ascorbic Acid (Vitamin C) 500 mg PO BID [facility] Last Admin: 05/23/20 08:39 Dose: 500 mg Documented by: Ciprofloxacin (Ciprofloxacin Hcl) 500 mg PO BID [facility] Last Admin: 05/23/20 08:38 Dose: 500 mg Documented by: Dextrose/Water (Dextrose 50% In Water) 50 ml IVPUSH ASDIRECTED PRN PRN Reason: Hypoglycemia Glucagon (Glucagen) 1 mg IM ASDIRECTED PRN PRN Reason: Hypoglycemia Sodium Chloride (Normal Saline) 1,000 mls @ 25 mls/hr IV ASDIRECTED [facility] Last Admin: 05/23/20 04:58 Dose: 25 mls/hr Documented by: Insulin Glargine (Lantus Solostar) 50 units SUBCUT BID [facility] Last Admin: 05/23/20 08:39 Dose: 50 units Documented by: Insulin Human Lispro (Humalog) 0 unit SUBCUT QIDACANDBED [facility]; Protocol Last Admin: 05/23/20 16:53 Dose: 4 unit Documented by: Insulin Human Lispro (Humalog) 0 unit SUBCUT DAILY@1700 [facility] Last Admin: 05/23/20 16:54 Dose: Not Given Documented by: Insulin Human Lispro (Humalog) 0 unit SUBCUT DAILY@0800 [facility] Last Admin: 05/23/20 08:44 Dose: 6 units Documented by: Insulin Human Lispro (Humalog) 0 unit SUBCUT DAILY@1200 [facility] Last Admin: 05/23/20 11:42 Dose: Not Given Documented by: Atorvastatin 80mg (Ptom) 0 each PO BEDTIME [facility] Last Admin: 05/22/20 21:06 Dose: 1 each Documented by: Tamsulosin HCl (Flomax) 0.4 mg PO DAILY [facility] Last Admin: 05/23/20 08:39 Dose: 0.4 mg Documented by: Discontinued Medications Furosemide (Lasix) 20 mg IVPUSH ONETIME ONE Stop: 05/23/20 02:41 Last Admin: 05/23/20 03:00 Dose: 20 mg Documented by: Sodium Chloride (Normal Saline) 1,000 mls @ 250 mls/hr IV ASDIRECTED [facility] Last Admin: 05/22/20 12:28 Dose: 250 mls/hr Documented by: - Exam General: Alert, Oriented, Cooperative HEENT: Pupils Equal, Pupils Reactive, EOMI, Mucous Membr. Moist/[place] Neck: Supple Lungs: Normal Respiratory Effort Cardiovascular: Regular Rate, Regular Rhythm GI/Abdominal Exam: Normal Bowel Sounds, Soft, Non-Tender, No Organomegaly, No Distention, No Abnormal Bruit, No Mass, Pelvis Stable Extremities: Normal Inspection, Normal Range of Motion, Non-Tender, No Pedal Edema, Normal Capillary Refill Peripheral Pulses: 1+: Radial (L), Radial (R) Psy/Mental Status: Alert, Normal Affect, Normal Mood Sepsis Event Note - Evaluation Sepsis Screening Result: No Definite Risk - Focused Exam Vital Signs: Vital Signs Temp Temp Pulse Resp BP Pulse Ox 05/23/20 16:34 98.1 F 82 16 122/50 L 98 05/23/20 15:32 97.9 F 75 16 112/64 98 05/23/20 15:20 97.7 F 78 16 119/61 98 05/23/20 14:42 97.7 F 76 16 118/58 L 96 05/23/20 10:41 97.9 F 84 16 120/71 98 - Problem List Review Problem List Initiated/Reviewed/Updated: Yes - My Orders Last 24 Hours: My Active Orders 05/22/20 20:05 Sodium Chloride 0.9% [Normal Saline] 1,000 ml IV ASDIRECTED 05/22/20 21:00 Ascorbic Acid [Vitamin C] 500 mg PO BID Ciprofloxacin [Ciprofloxacin HCl] 500 mg PO BID Insulin Glarg,Human.Rec.Analog [LantUS Solostar] 50 units SUBCUT BID Patient's Own Medication [Ptom] 0 each PO BEDTIME 05/22/20 22:12 Transfuse Red Blood Cells [COMM] Routine 05/23/20 08:00 Insulin Lispro [HumaLOG] 0 unit SUBCUT DAILY@0800 05/23/20 09:00 Tamsulosin [Flomax] 0.4 mg PO DAILY 05/23/20 09:36 PLATELETS APH [BBK] Routine Transfuse Platelets [COMM] Routine 05/23/20 11:40 SCD [Sequential Compression Device] [OM.PC] Routine 05/23/20 12:00 Insulin Lispro [HumaLOG] 0 unit SUBCUT DAILY@1200 05/23/20 17:21 Transfuse Platelets [COMM] Routine 05/23/20 21:00 GLUCOSE POC LAB TO COLLECT JPM [POC] QIDACANDBED 05/24/20 07:30 GLUCOSE POC LAB TO COLLECT JPM [POC] QIDACANDBED 05/24/20 11:30 GLUCOSE POC LAB TO COLLECT JPM [POC] QIDACANDBED 05/24/20 16:30 GLUCOSE POC LAB TO COLLECT JPM [POC] QIDACANDBED 05/24/20 21:00 GLUCOSE POC LAB TO COLLECT JPM [POC] QIDACANDBED 05/25/20 07:30 GLUCOSE POC LAB TO COLLECT JPM [POC] QIDACANDBED - Plan Plan:: Assessment/Plan: #1. MDS with Anemia: his hemoglobin was up to 7.2 after 2 units of blood I gave him tomorrow on up to 8.5 today this morning. This afternoon it was 8.4. The platelet count was 43,000 this morning and I spoke with the oncologist and he wants to 75,000. After transfusion of platelets this afternoon was up to 62,000 Gave Him Another Transfusion and We'll Discharge Tomorrow Morning. A Capsule Endoscopy Has Been Ordered. #2. History HTN presently good control of BP. #3. CRF: Stage 3A #4. DM II. On Insulin per sliding scale #5. HLD: Stable #6. ASHD chronic and stable..
[2020-05-23] MEDS: ATORVASTATIN 80 MG PO SCH (21:47)
[2020-05-24] MEDS: Insulin Lispro 100 Unit/ML 3 ML KwikPen SUBCUT SCH ×6 (08:13→17:23)
[2020-05-24] MEDS: Insulin Glargine,Human Rec. Analog 100 Units/ML 3 ML Pen SUBCUT SCH (08:15)
[2020-05-24] MEDS: CIPROFLOXACIN 500 MG PO SCH (08:16)
[2020-05-24] MEDS: Tamsulosin 0.4 MG **PTOM PO SCH (08:17)
[2020-05-24] MEDS: Ascorbic Acid 500 MG Tab PO SCH (08:18)
[2020-05-24 18:27] VITALS: BP 124/67; PULSE 81
--- NOTE | 2020-05-24 19:37 | PCM.PN ---
- General Info Date of Service: 05/24/20 Subjective Update: Inocencio states that he is feeling better but wants to get his blood also benign before he is discharged. Functional Status: Reports: Pain Controlled - Review of Systems General: Reports: Weakness, Fatigue HEENT: Reports: No Symptoms Pulmonary: Reports: No Symptoms Cardiovascular: Reports: No Symptoms Gastrointestinal: Reports: No Symptoms Genitourinary: Reports: No Symptoms Musculoskeletal: Reports: No Symptoms Skin: Reports: No Symptoms Neurological: Reports: No Symptoms Psychiatric: Reports: No Symptoms - Patient Data Vitals - Most Recent: Last Vital Signs Temp 98.1 F 05/24/20 18:26 Pulse 81 05/24/20 18:26 Resp 14 05/24/20 18:26 BP 124/67 05/24/20 18:26 Pulse Ox 98 05/24/20 18:26 Weight - Most Recent: 208 lb I&O - Last 24 Hours: Intake & Output 05/24/20 05/24/20 05/24/20 06:59 14:59 22:59 Intake Total 1961 669 Balance 1961 669 Lab Results Last 24 Hours: Laboratory Results - last 24 hr 05/22/20 05/23/20 05/24/20 Range/Units 11:48 21:00 06:00 WBC 1.5 L (4.5-11.0) K/uL RBC 2.82 L (4.30-5.90) M/uL Hgb 8.1 L (12.0-15.0) g/dL Hct 25.5 L (40.0-54.0) % MCV 90 (80-98) fL MCH 29 (27-31) pg MCHC 32 (32-36) % Plt Count 59 L (150-400) K/uL Neut % (Auto) 26 L (36-66) % Lymph % (Auto) 63 H (24-44) % [place] % (Auto) 11 H (2-6) % Eos % (Auto) 1 L (2-4) % Baso % (Auto) 0 (0-1) % POC Glucose 234 H (74-106) MG/DL Blood Type A POSITIVE Gel Antibody Screen Negative Crossmatch See Detail 05/24/20 05/24/20 05/24/20 Range/Units 07:30 11:30 14:45 WBC 1.5 L (4.5-11.0) K/uL RBC 2.78 L (4.30-5.90) M/uL Hgb 8.0 L (12.0-15.0) g/dL Hct 25.4 L (40.0-54.0) % MCV 91 (80-98) fL MCH 29 (27-31) pg MCHC 32 (32-36) % Plt Count 83 L (150-400) K/uL Neut % (Auto) 41 (36-66) % Lymph % (Auto) 46 H (24-44) % [place] % (Auto) 11 H (2-6) % Eos % (Auto) 1 L (2-4) % Baso % (Auto) 0 (0-1) % POC Glucose 81 172 H (74-106) MG/DL Blood Type Gel Antibody Screen Crossmatch 05/24/20 Range/Units 17:13 WBC (4.5-11.0) K/uL RBC (4.30-5.90) M/uL Hgb (12.0-15.0) g/dL Hct (40.0-54.0) % MCV (80-98) fL MCH (27-31) pg MCHC (32-36) % Plt Count (150-400) K/uL Neut % (Auto) (36-66) % Lymph % (Auto) (24-44) % [place] % (Auto) (2-6) % Eos % (Auto) (2-4) % Baso % (Auto) (0-1) % POC Glucose 226 H (74-106) MG/DL Blood Type Gel Antibody Screen Crossmatch Med Orders - Current: Current Medications Ascorbic Acid (Vitamin C) 500 mg PO BID [facility] Last Admin: 05/24/20 08:18 Dose: 500 mg Documented by: Ciprofloxacin (Ciprofloxacin Hcl) 500 mg PO BID [facility] Last Admin: 05/24/20 08:16 Dose: 500 mg Documented by: Dextrose/Water (Dextrose 50% In Water) 50 ml IVPUSH ASDIRECTED PRN PRN Reason: Hypoglycemia Glucagon (Glucagen) 1 mg IM ASDIRECTED PRN PRN Reason: Hypoglycemia Sodium Chloride (Normal Saline) 1,000 mls @ 25 mls/hr IV ASDIRECTED [facility] Last Admin: 05/23/20 04:58 Dose: 25 mls/hr Documented by: Insulin Glargine (Lantus Solostar) 50 units SUBCUT BID [facility] Last Admin: 05/24/20 08:15 Dose: 30 units Documented by: Insulin Human Lispro (Humalog) 0 unit SUBCUT QIDACANDBED [facility]; Protocol Last Admin: 05/24/20 17:22 Dose: 4 unit Documented by: Insulin Human Lispro (Humalog) 0 unit SUBCUT DAILY@1700 [facility] Last Admin: 05/24/20 17:23 Dose: 10 units Documented by: Insulin Human Lispro (Humalog) 0 unit SUBCUT DAILY@0800 [facility] Last Admin: 05/24/20 08:13 Dose: Not Given Documented by: Insulin Human Lispro (Humalog) 0 unit SUBCUT DAILY@1200 [facility] Last Admin: 05/24/20 11:49 Dose: 10 units Documented by: Atorvastatin 80mg (Ptom) 0 each PO BEDTIME [facility] Last Admin: 05/23/20 21:47 Dose: 1 each Documented by: Tamsulosin HCl (Flomax) 0.4 mg PO DAILY [facility] Last Admin: 05/24/20 08:17 Dose: 0.4 mg Documented by: Discontinued Medications Furosemide (Lasix) 20 mg IVPUSH ONETIME ONE Stop: 05/23/20 02:41 Last Admin: 05/23/20 03:00 Dose: 20 mg Documented by: Sodium Chloride (Normal Saline) 1,000 mls @ 250 mls/hr IV ASDIRECTED [facility] Last Admin: 05/22/20 12:28 Dose: 250 mls/hr Documented by: - Exam General: Alert, Oriented Neck: Supple Lungs: Clear to Auscultation, Normal Respiratory Effort Cardiovascular: Regular Rate, Regular Rhythm GI/Abdominal Exam: Normal Bowel Sounds, Soft, Non-Tender, No Organomegaly, No Distention, No Abnormal Bruit, No Mass, Pelvis Stable Back Exam: Normal Inspection Peripheral Pulses: 1+: Radial (L), Radial (R) Skin: Warm, Dry, Intact Neurological: No New Focal Deficit Psy/Mental Status: Alert, Normal Affect, Normal Mood Sepsis Event Note - Evaluation Sepsis Screening Result: No Definite Risk - Focused Exam Vital Signs: Vital Signs Temp Temp Pulse Resp BP Pulse Ox 05/24/20 18:26 98.1 F 81 14 124/67 98 05/24/20 18:00 97.5 F 80 16 131/61 94 L 05/24/20 17:30 97.5 F 88 16 132/67 100 05/24/20 17:15 36.6 F L 80 16 124/59 L 97 05/24/20 17:00 37 F L 81 14 127/62 96 05/24/20 16:45 98.1 F 80 16 128/62 97 05/24/20 16:30 97.7 F 79 16 113/56 L 97 05/24/20 14:55 36.2 F L 79 16 123/65 98 05/24/20 12:37 97.0 F 80 14 125/63 99 05/24/20 11:51 96.8 F L 81 16 127/64 96 05/24/20 11:35 96.8 F L 80 16 116/63 94 L 05/24/20 11:11 97.3 F 78 14 118/60 95 05/24/20 08:09 96.8 F L 86 16 132/64 99 - Problem List Review Problem List Initiated/Reviewed/Updated: Yes - My Orders Last 24 Hours: My Active Orders 05/24/20 15:23 Transfuse Red Blood Cells [COMM] Routine 05/24/20 18:26 Ready for Discharge [RC] PER UNIT ROUTINE 05/24/20 18:41 Peripheral IV Discontinue [OM.PC] Routine 05/24/20 21:00 GLUCOSE POC LAB TO COLLECT JPM [POC] QIDACANDBED 05/25/20 07:30 GLUCOSE POC LAB TO COLLECT JPM [POC] QIDACANDBED - Plan Plan:: Assessment/Plan: #1. MDS with Anemia: his hemoglobin was up to 8.1 after 3 units of blood,. The platelet count was 59,000 this morning.The oncologist wants up to 75,000. I will give him another unit of platelets today which is again ordered and then we will discharge him home. His hemoglobin was still 8 given another unit of blood as well and then discharge home. I feel he needs a capsule endoscopy will arrange for that to be done sooner than what it is scheduled for the present time. #2. History HTN presently good control of BP. #3. CRF: Stage 3A #4. DM II. On Insulin per sliding scale #5. HLD: Stable #6. ASHD chronic and stable.. 6 PM platelets have been given and the platelet count is up to 83,000. Another unit of blood has also been given and will discharge home this evening.
--- NOTE | 2020-05-24 19:49 | PCM.DCSUM1 ---
Discharge Summary - Hospital Course Free Text/Narrative:: Inocencio was admitted with a hemoglobin of 5.6. He had fainted while at home and his son brought him in and was seen in the emergency room and then admitted. Diagnosis: Stroke: No - Discharge Data Discharge Date: 05/24/20 Discharge Disposition: Home, Self-Care 01 Condition: Stable - Referral to Home Health Primary Care Physician: Doug Low Sr, MD - Patient Summary/Data Hospital Course: Inocencio was admitted and given blood immediately and after 3 units of blood pedal was up to 8.1. The initial platelet count was 59,000 and then went down to 43,000. He was given 2 units of platelets and after the second unit was given the platelets were up to 83,000. He has had an EGD and colonoscopy and the reason for the blood loss was not found so presumed to be in the small bowel. He tolerated the transfusions without a problem. - Patient Instructions Diet: Heart Healthy Diet, Regular Diet as Tolerated, Diabetic Diet Activity: As Tolerated Showering/Bathing: May Shower Notify Provider of: Fever, Nausea and/or Vomiting Other/Special Instructions: Keep your scheduled oncology appointment. Someone will call you regarding the capsule endoscopy: PLACE, TIME AND DATE. See Dr. Low in 1 week or sooner if needed - Discharge Plan *PRESCRIPTION DRUG MONITORING PROGRAM REVIEWED*: No *COPY OF PRESCRIPTION DRUG MONITORING REPORT IN PATIENT SONU: No Home Medications: Home Meds Insulin Glarg,Human.Rec.Analog [Lantus] 50 units SQ Q12HR 04/01/13 [History] Insulin Lispro [Humalog Kwikpen U-100] 40 unit SQ ASDIRECTED 07/12/15 [History] Ciprofloxacin [Ciprofloxacin HCl] 1 tab PO BID 04/18/19 [History] Ascorbic Acid [Vitamin C with Tameka Hips] 500 mg PO BID 04/28/20 [History] Tamsulosin HCl [Flomax] 0.4 mg PO DAILY 04/28/20 [History] atorvaSTATin [Lipitor] 80 mg PO BEDTIME 04/28/20 [History] Ciprofloxacin [Ciprofloxacin HCl] 500 mg PO BID tablet 05/01/20 [Rx] Glucagon,Human Recombinant [Glucagen] 1 mg IM ASDIRECTED PRN vial 05/01/20 [Rx] Insulin Lispro [Humalog] 0 unit SUBCUT QIDACANDBED pen 05/01/20 [Rx] Tamsulosin HCl 0.4 mg PO DAILY 05/22/20 [History] Oxygen Therapy Mode: Room Air Referrals: Doug Low Sr, MD [Primary Care Provider] - - Discharge Summary/Plan Comment DC Time >30 min.: No Discharge Summary/Plan Comment: Assessment/Plan: #1. MDS with Anemia: his hemoglobin was up to 8.1 after 3 units of blood,. The platelet count was 59,000 this morning.The oncologist wants up to 75,000. I will give him another unit of platelets today which is again ordered and then we will discharge him home. His hemoglobin was still 8 given another unit of blood as well and then discharge home. I feel he needs a capsule endoscopy will arrange for that to be done sooner than what it is sched uled for the present time. #2. History HTN presently good control of BP. #3. CRF: Stage 3A #4. DM II. On Insulin per sliding scale #5. HLD: Stable #6. ASHD chronic and stable.. 6 PM platelets have been given and the platelet count is up to 83,000. Another unit of blood has also been given and will discharge home this evening. - General Info Date of Service: 05/24/20 Functional Status: Reports: Pain Controlled - Review of Systems General: Reports: Weakness HEENT: Reports: No Symptoms Pulmonary: Reports: No Symptoms Cardiovascular: Reports: No Symptoms Gastrointestinal: Reports: No Symptoms Genitourinary: Reports: No Symptoms Musculoskeletal: Reports: No Symptoms Skin: Reports: No Symptoms Neurological: Reports: No Symptoms Psychiatric: Reports: No Symptoms - Patient Data Vitals - Most Recent: Last Vital Signs Temp 98.1 F 05/24/20 18:26 Pulse 81 05/24/20 18:26 Resp 14 05/24/20 18:26 BP 124/67 05/24/20 18:26 Pulse Ox 98 05/24/20 18:26 Weight - Most Recent: 208 lb I&O - Last 24 hours: Intake & Output 05/24/20 05/24/20 05/24/20 06:59 14:59 22:59 Intake Total 1961 669 Balance 1961 669 Lab Results - Last 24 hrs: Laboratory Results - last 24 hr 05/22/20 05/23/20 05/24/20 Range/Units 11:48 21:00 06:00 WBC 1.5 L (4.5-11.0) K/uL RBC 2.82 L (4.30-5.90) M/uL Hgb 8.1 L (12.0-15.0) g/dL Hct 25.5 L (40.0-54.0) % MCV 90 (80-98) fL MCH 29 (27-31) pg MCHC 32 (32-36) % Plt Count 59 L (150-400) K/uL Neut % (Auto) 26 L (36-66) % Lymph % (Auto) 63 H (24-44) % [place] % (Auto) 11 H (2-6) % Eos % (Auto) 1 L (2-4) % Baso % (Auto) 0 (0-1) % POC Glucose 234 H (74-106) MG/DL Blood Type A POSITIVE Gel Antibody Screen Negative Crossmatch See Detail 05/24/20 05/24/20 05/24/20 Range/Units 07:30 11:30 14:45 WBC 1.5 L (4.5-11.0) K/uL RBC 2.78 L (4.30-5.90) M/uL Hgb 8.0 L (12.0-15.0) g/dL Hct 25.4 L (40.0-54.0) % MCV 91 (80-98) fL MCH 29 (27-31) pg MCHC 32 (32-36) % Plt Count 83 L (150-400) K/uL Neut % (Auto) 41 (36-66) % Lymph % (Auto) 46 H (24-44) % [place] % (Auto) 11 H (2-6) % Eos % (Auto) 1 L (2-4) % Baso % (Auto) 0 (0-1) % POC Glucose 81 172 H (74-106) MG/DL Blood Type Gel Antibody Screen Crossmatch 05/24/20 Range/Units 17:13 WBC (4.5-11.0) K/uL RBC (4.30-5.90) M/uL Hgb (12.0-15.0) g/dL Hct (40.0-54.0) % MCV (80-98) fL MCH (27-31) pg MCHC (32-36) % Plt Count (150-400) K/uL Neut % (Auto) (36-66) % Lymph % (Auto) (24-44) % [place] % (Auto) (2-6) % Eos % (Auto) (2-4) % Baso % (Auto) (0-1) % POC Glucose 226 H (74-106) MG/DL Blood Type Gel Antibody Screen Crossmatch Med Orders - Current: Current Medications Discontinued Medications Ascorbic Acid (Vitamin C) 500 mg PO BID [facility] Last Admin: 05/24/20 08:18 Dose: 500 mg Documented by: Ciprofloxacin (Ciprofloxacin Hcl) 500 mg PO BID [facility] Last Admin: 05/24/20 08:16 Dose: 500 mg Documented by: Dextrose/Water (Dextrose 50% In Water) 50 ml IVPUSH ASDIRECTED PRN PRN Reason: Hypoglycemia Furosemide (Lasix) 20 mg IVPUSH ONETIME ONE Stop: 05/23/20 02:41 Last Admin: 05/23/20 03:00 Dose: 20 mg Documented by: Glucagon (Glucagen) 1 mg IM ASDIRECTED PRN PRN Reason: Hypoglycemia Sodium Chloride (Normal Saline) 1,000 mls @ 250 mls/hr IV ASDIRECTED [facility] Last Admin: 05/22/20 12:28 Dose: 250 mls/hr Documented by: Sodium Chloride (Normal Saline) 1,000 mls @ 25 mls/hr IV ASDIRECTED [facility] Last Admin: 05/23/20 04:58 Dose: 25 mls/hr Documented by: Insulin Glargine (Lantus Solostar) 50 units SUBCUT BID [facility] Last Admin: 05/24/20 08:15 Dose: 30 units Documented by: Insulin Human Lispro (Humalog) 0 unit SUBCUT QIDACANDBED [facility]; Protocol Last Admin: 05/24/20 17:22 Dose: 4 unit Documented by: Insulin Human Lispro (Humalog) 0 unit SUBCUT DAILY@1700 [facility] Last Admin: 05/24/20 17:23 Dose: 10 units Documented by: Insulin Human Lispro (Humalog) 0 unit SUBCUT DAILY@0800 [facility] Last Admin: 05/24/20 08:13 Dose: Not Given Documented by: Insulin Human Lispro (Humalog) 0 unit SUBCUT DAILY@1200 [facility] Last Admin: 05/24/20 11:49 Dose: 10 units Documented by: Atorvastatin 80mg (Ptom) 0 each PO BEDTIME [facility] Last Admin: 05/23/20 21:47 Dose: 1 each Documented by: Tamsulosin HCl (Flomax) 0.4 mg PO DAILY [facility] Last Admin: 05/24/20 08:17 Dose: 0.4 mg Documented by: - Exam General: Reports: Alert, Oriented HEENT: Reports: Pupils Equal, Pupils Reactive, EOMI, Mucous Membr. Moist/[place] Neck: Reports: Supple Lungs: Reports: Clear to Auscultation, Normal Respiratory Effort Cardiovascular: Reports: Regular Rate, Regular Rhythm GI/Abdominal Exam: Normal Bowel Sounds, Soft, Non-Tender, No Organomegaly, No Distention, No Abnormal Bruit, No Mass, Pelvis Stable Extremities: Normal Inspection, Normal Range of Motion, Non-Tender, No Pedal Edema, Normal Capillary Refill Skin: Reports: Warm, Dry, Intact Psy/Mental Status: Reports: Alert, Normal Affect, Normal Mood
== END 2020-05-24 19:15 | disposition home or self-care (01) ==
LOC: JP.ED 10:59 → JP.MS 13:01
PROVIDERS: ADMIT Internal Medicine; ATTEND Internal Medicine
DX: D46.9 Myelodysplastic syndrome, unspecified (principal); I12.9 Hypertensive chronic kidney disease with stage 1 through stage 4 chronic kidney disease, or unspecified chronic kidney disease; N18.31 Chronic kidney disease, stage 3a; E11.22 Type 2 diabetes mellitus with diabetic chronic kidney disease; E78.5 Hyperlipidemia, unspecified; I25.10 Atherosclerotic heart disease of native coronary artery without angina pectoris; Z79.899 Other long term (current) drug therapy; D63.1 Anemia in chronic kidney disease; Z88.8 Allergy status to other drugs, medicaments and biological substances
CPT/HCPCS: 36415; 36430; 80048; 80053; 82962; 85025; 86850; 86900; 86901; 86920; 86922; 96360; 96361; 99284; 99285; A9270; J1940; J7030; P9016; P9034